=== PATIENT | male | born 1950 | race Caucasian/White ===

== ENCOUNTER → 2016-05-11 | Outpatient (CLI) | payer MEDICARE, MEDICAID ==
[2015-02-13 14:34] VITALS: BP 179/92
[~2016-05-11] MED LIST: FAMO20TA5 PO; LORA0.5T PO; MAGN400O4 PO; POLY17PO5 PO; SENN8.6T3 PO; SIMV20TA3 PO; TAMS0.4C97 PO; VENL37.5 PO
--- NOTE | 2016-05-12 15:15 | RAD ---
DATE: 05/11/2016 EXAM: DIGITAL DIAGNOSTIC BILATERAL HISTORY: Lump periareolar area right breast COMPARISON: None This study was interpreted with the benefit of Computerized Aided Detection (CAD). FINDINGS: The breast parenchyma shows scattered fibroglandular densities. Breast parenchyma level B. There is an area of low density, compatible with fat, in the periareolar position of the right breast. A dominant soft tissue mass or suspect group of calcifications is not seen. There are probable lymph nodes noted in the upper breasts bilaterally. Targeted ultrasound to the area of concern in the right breast was performed. There is an echogenic mass, compatible with fat, corresponding to the finding on mammography. IMPRESSION: Benign findings. There are findings about the right nipple suggesting excess fat or a lipoma. If there is a discrete, palpable, mass in either breast biopsy may be warranted despite unremarkable imaging BI-RADS CATEGORY: 2 BENIGN FINDING(S) RECOMMENDED FOLLOW-UP: CLIN FOLLOW UP IMAGING CLINICALLY INDICATED PQRS compliance statement: Patient information was entered into a reminder system with a target due date as clinically warranted for the next mammogram. Mammography is a sensitive method for finding small breast cancers, but it does not detect them all and is not a substitute for careful clinical examination. A negative mammogram does not negate a clinically suspicious finding and should not result in delay in biopsying a clinically suspicious abnormality. "Our facility is accredited by the [employer] Mammography Program." DICTATED and SIGNED BY: ALVAREZ GLYNN MD DATE: 05/11/16 1134 MTDJono
== END | disposition home or self-care (01) ==
LOC: MAMMO 12:50
PROVIDERS: ATTEND Internal Medicine
DX: R92.8 Other abnormal and inconclusive findings on diagnostic imaging of breast (principal); N63 Unspecified lump in breast
CPT/HCPCS: 76641; 77051; G0204

== ENCOUNTER 2018-08-04 08:16 | Inpatient (IN) | payer MEDICARE, OTHER ==
[~2018-08-04] VITALS: Ht 182.9 cm; Wt 120.2 kg
[~2018-08-04 08:16] MED LIST changes: -MAGN400O4 PO; +MAGN400O7 PO; +POLY17PO29 PO; -POLY17PO5 PO; +SENN-80 PO; -SENN8.6T3 PO
[2018-08-04] MEDS ORDERED: ACYCLOVIR SODIUM 500 MG in IV DEXTROSE 5% 100ML 100 ML IV STA (08:37)
--- NOTE | 2018-08-04 08:48 | PHYS DOC ---
Past Medical History Past Medical History: Anemia, Anxiety, Constipation, Depression, GERD, High Cholesterol, Hypertension, Renal Failure, Other Additional Past Medical Histor: MR, DYSPHAGIA Past Surgical History: Other Additional Past Surgical Histo: unknown Alcohol Use: None Drug Use: None Adult General Chief Complaint Chief Complaint: SHINGLES HPI HPI Patient is a 68 year old with history of mental retardation, hypertension, high cholesterol, kidney disease, anemia, mental retardation, who presents to the ED today from the senior care. Per senior care report to EMS patient has altered mental status bilateral lower extremity edema, and blisters on his bottom. EMS states some of the nurses at the senior care stated patient' s mental status is baseline as well as his lower extremity swelling is chronic. Patient arrives in the ED alert and oriented 3 and asking why he was sent to the hospital. He states he has no medical complaints. Review of Systems Review of Systems Constitutional: Denies fever or chills [] Eyes: Denies change in visual acuity, redness, or eye pain [] HENT: Denies nasal congestion or sore throat [] Respiratory: Denies cough or shortness of breath [] Cardiovascular: No additional information not addressed in HPI [] GI: Denies abdominal pain, nausea, vomiting, bloody stools or diarrhea [] : Denies dysuria or hematuria [] Musculoskeletal: Chronic edema. Denies back pain or joint pain [] Integument: Blisters on his bottom. Neurologic: Altered mental status. Denies headache, focal weakness or sensory changes [] All other systems were reviewed and found to be within normal limits, except as documented in this note. Current Medications Current Medications Current Medications Medications (Trade) Dose Ordered Sig/Brenden Start Time Stop Time Status Last Admin Dose Admin Acyclovir Sodium 500 mg/Dextrose 110 ml @ 110 mls/hr 1X STAT 08/04/18 08:37 08/04/18 09:36 DC 08/04/18 09:17 110 MLS/HR Piperacillin Sod/ Tazobactam Sod 4.5 gm/Sodium Chloride 100 ml @ 200 mls/hr 1X ONCE 08/04/18 12:00 08/04/18 12:29 DC 08/04/18 12:36 200 MLS/HR Sodium Chloride 1,000 ml @ 1,000 mls/hr 1X ONCE 08/04/18 11:00 08/04/18 11:59 DC Vancomycin HCl (Vanco Per Pharmacy) 1 each 1X ONCE 08/04/18 12:00 08/04/18 12:46 DC Allergies Allergies Allergies Coded Allergies Type Severity Reaction Last Updated Verified No Known Drug Allergies 05/10/13 No Physical Exam Physical Exam Constitutional: Well developed, well nourished, no acute distress, non-toxic appearance. [] HENT: Normocephalic, atraumatic, bilateral external ears normal, oropharynx moist, no oral exudates, nose normal. Tongue is thick and sticks out which is chronic. Airway is open. Eyes: PERRLA, EOMI, conjunctiva normal, no discharge.left upper eyelid is inverted chronically Neck: Normal range of motion, no tenderness, supple, no stridor. [] Cardiovascular:Heart rate regular rhythm, no murmur [] Lungs & Thorax: Bilateral breath sounds clear to auscultation [] Abdomen: Bowel sounds normal, soft, no tenderness, no masses, no pulsatile masses. [] Skin: Right buttocks with mild amount of blisters consistent with shingles. Back: No tenderness, no CVA tenderness. [] Extremities: No tenderness, no cyanosis, no clubbing, ROM intact, chronic not pitting +1 edema bilateral lower extremities. Drop foot on the left side. Neurologic: Alert and oriented X 3, normal motor function, normal sensory function, no focal deficits noted. Cranial nerves II through XII intact. Psychologic: Affect normal, judgement normal, mood normal. [] Current Patient Data Vital Signs Vital Signs Date Time Temp Pulse Resp B/P (MAP) Pulse Ox O2 Delivery O2 Flow Rate FiO2 08/04/18 12:00 88 16 141/78 (99) 95 Room Air 08/04/18 08:16 98.8 98.8 Lab Values Laboratory Tests Test 08/04/18 09:00 08/04/18 10:12 08/04/18 10:20 08/04/18 11:20 White Blood Count 8.2 x10^3/uL (4.0-11.0) Red Blood Count 4.62 x10^6/uL (4.30-5.70) Hemoglobin 12.3 g/dL (13.0-17.5) L Hematocrit 38.6 % (39.0-53.0) L Mean Corpuscular Volume 84 fL (79-100) Mean Corpuscular Hemoglobin 27 pg (25-35) Mean Corpuscular Hemoglobin Concent 32 g/dL (31-37) Red Cell Distribution Width 17.4 % (11.5-14.5) H Platelet Count 266 x10^3/uL (140-400) Neutrophils (%) (Auto) 73 % (31-73) Lymphocytes (%) (Auto) 19 % (24-48) L Monocytes (%) (Auto) 5 % (0-9) Eosinophils (%) (Auto) 2 % (0-3) Basophils (%) (Auto) 1 % (0-3) Neutrophils # (Auto) 6.0 x10^3uL (1.8-7.7) Lymphocytes # (Auto) 1.5 x10^3/uL (1.0-4.8) Monocytes # (Auto) 0.4 x10^3/uL (0.0-1.1) Eosinophils # (Auto) 0.2 x10^3/uL (0.0-0.7) Basophils # (Auto) 0.0 x10^3/uL (0.0-0.2) Prothrombin Time 13.0 SEC (11.7-14.0) Prothrombin Time INR 1.0 (0.8-1.1) Sodium Level 145 mmol/L (136-145) Potassium Level 4.1 mmol/L (3.5-5.1) Chloride Level 103 mmol/L (98-107) Carbon Dioxide Level 35 mmol/L (21-32) H Anion Gap 7 (6-14) Blood Urea Nitrogen 24 mg/dL (8-26) Creatinine 1.2 mg/dL (0.7-1.3) Estimated GFR (Cockcroft-Gault) 60.6 BUN/Creatinine Ratio 20 (6-20) Glucose Level 137 mg/dL (70-99) H Calcium Level 8.8 mg/dL (8.5-10.1) Magnesium Level 1.9 mg/dL (1.8-2.4) Total Bilirubin 0.3 mg/dL (0.2-1.0) Aspartate Amino Transferase (AST) 15 U/L (15-37) Alanine Aminotransferase (ALT) 24 U/L (16-63) Alkaline Phosphatase 73 U/L (46-116) Creatine Kinase 82 U/L (39-308) Creatine Kinase MB (Mass) 0.5 ng/mL (0.0-3.6) Creatine Kinase MB Relative Index 0.6 % (0-4) Troponin I Quantitative < 0.017 ng/mL (0.000-0.055) HO-Jny-E-Type Natriuretic Peptide 26 pg/mL (0-124) Total Protein 7.9 g/dL (6.4-8.2) Albumin 3.9 g/dL (3.4-5.0) Albumin/Globulin Ratio 1.0 (1.0-1.7) Thyroid Stimulating Hormone (TSH) 2.133 uIU/mL (0.358-3.74) Influenza Type A Antigen Negative (NEGATIVE) Influenza Type B Antigen Negative (NEGATIVE) Lactic Acid Level 2.1 mmol/L (0.4-2.0) H Urine Collection Type U cath Urine Color Yellow Urine Clarity Cloudy Urine pH 7.0 Urine Specific [place] 1.020 Urine Protein Negative mg/dL (NEG-TRACE) Urine Glucose (UA) Negative mg/dL (NEG) Urine Ketones (Stick) Trace mg/dL (NEG) Urine Blood Negative (NEG) Urine Nitrite Negative (NEG) Urine Bilirubin Negative (NEG) Urine Urobilinogen Dipstick 1.0 mg/dL (0.2 mg/dL) Urine Leukocyte Esterase Large (NEG) Urine RBC 3-5 /HPF (0-2) Urine WBC Tntc /HPF (0-4) Urine Squamous Epithelial Cells Mod /LPF Urine Bacteria Many /HPF (0-FEW) Urine Mucus Mod /LPF Laboratory Tests 08/04/18 09:00 Laboratory Tests 08/04/18 09:00 EKG EKG [] Radiology/Procedures Radiology/Procedures []PROCEDURE: PORTABLE CHEST 1V EXAM: Chest, single view. HISTORY: Altered mental status. Shingles. COMPARISON: 02/11/2015 FINDINGS: A frontal view of the chest is obtained. There is stable and right middle lobe and left infrahilar opacity likely due to atelectasis or pleural parenchymal scarring. There is no pleural effusion or pneumothorax. The heart is normal in size. There are severe degenerative changes involving the glenohumeral joints. IMPRESSION: Stable suspected right middle lobe and left infrahilar atelectasis or pleural parenchymal scarring. Electronically signed by: Coleen Celaya MD (08/04/2018 9:13 AM) [facility] DICTATED and SIGNED BY: COLEEN CELAYA MD DATE: 08/04/18912 PROCEDURE: CT HEAD WO CONTRAST CT HEAD INDICATION: Altered mental status COMPARISON: 12/30/2014 Exposure: One or more of the following individualized dose reduction techniques were utilized for this examination: 1. Automated exposure control 2. Adjustment of the mA and/or kV according to patient size 3. Use of iterative reconstruction technique TECHNIQUE: 5 mm contiguous axial images were obtained from the skull base to the vertex in both bone and soft tissue algorithm. FINDINGS: Mild bilateral periventricular white matter hypodensities likely chronic small vessel ischemic disease. No evidence of acute intracranial hemorrhage. No extra-axial fluid collections. No mass effect or midline shift. Ventricular size is appropriate. Basal cisterns are patent. No fractures identified.Rivero-white differentiation is preserved.Globes and orbits are within normal limits. Paranasal sinuses and mastoid air cells are clear. IMPRESSION: No acute intracranial findings. Electronically signed by: Dante Cid MD (08/04/2018 9:33 AM) [facility] DICTATED and SIGNED BY: DANTE CID MD DATE: 08/04/18932 Course & Med Decision Making Course & Med Decision Making Pertinent Labs and Imaging studies reviewed. (See chart for details) This is a 68-year-old male patient presenting to the ED today from the senior care to be evaluated for edema, altered mental status, from information from the senior care this appears to be a chronic issue. Patient was also noted to have blisters on the right buttocks consistent with shingles. CT of the head is negative for any acute findings, chest x-ray is negative. CBC with a normal WBC, CMP would not acute findings, troponin is normal. Lactic 2.1 , Urine analysis is noted for UTI. Patient was started on Zosyn and vancomycin. He was also given 2 L of IV fluids in the ED. He was also given acyclovir. His vitals are stable. Spoke with Dr. Krishnamurthy who accepted patient for admission Draglesa Disclaimer Dragon Disclaimer This electronic medical record was generated, in whole or in part, using a voice recognition dictation system. Departure Departure Impression: Primary Impression: UTI (urinary tract infection) Additional Impressions: Shingles Altered mental status Disposition: 09 ADMITTED INPATIENT Condition: STABLE Referrals: MICHAEL KRISHNAMURTHY MD (PCP) Problem Qualifiers Primary Impression: UTI (urinary tract infection) Urinary tract infection type: site unspecified Hematuria presence: without hematuria Qualified Codes: N39.0 - Urinary tract infection, site not specified Additional Impressions: Shingles Herpes zoster complications: without complications Qualified Codes: B02.9 - Zoster without complications Altered mental status Altered mental status type: unspecified Qualified Codes: R41.82 - Altered mental status, unspecified KARIE CRYSTAL ICD 9 CODER Aug 04, 2018 08:48
[2018-08-04 09:07] LABS: BASO % 1 % (0-3); EOS # 0.2 x10^3/uL (0.0-0.7); EOS % 2 % (0-3); HEMATOCRIT 38.6 % (39.0-53.0); HEMOGLOBIN 12.3 g/dL (13.0-17.5); LYMPH # 1.5 x10^3/uL (1.0-4.8); LYMPH % 19 % (24-48); MEAN CORPUSCULAR HEMOGLOBIN 27 pg (25-35); MEAN CORPUSCULAR HGB CONC 32 g/dL (31-37); MEAN CORPUSCULAR VOLUME 84 fL (79-100); MONO # 0.4 x10^3/uL (0.0-1.1); MONO % 5 % (0-9); NEUT % 73 % (31-73); PLATELET COUNT 266 x10^3/uL (140-400); RED BLOOD COUNT 4.62 x10^6/uL (4.30-5.70); RED CELL DISTRIBUTION WIDTH 17.4 % (11.5-14.5); WHITE BLOOD COUNT 8.2 x10^3/uL (4.0-11.0)
[2018-08-04 09:15] LABS: CALCIUM 8.8 mg/dL (8.5-10.1); CREATININE 1.2 mg/dL (0.7-1.3); GFR 60.6; POTASSIUM 4.1 mmol/L (3.5-5.1)
--- NOTE | 2018-08-04 09:15 | RAD ---
EXAM: Chest, single view. HISTORY: Altered mental status. Shingles. COMPARISON: 02/11/2015 FINDINGS: A frontal view of the chest is obtained. There is stable and right middle lobe and left infrahilar opacity likely due to atelectasis or pleural parenchymal scarring. There is no pleural effusion or pneumothorax. The heart is normal in size. There are severe degenerative changes involving the glenohumeral joints. IMPRESSION: Stable suspected right middle lobe and left infrahilar atelectasis or pleural parenchymal scarring. Electronically signed by: Coleen Cruz MD (08/04/2018 9:13 AM) [place] [id number]
[2018-08-04 09:21] LABS: ALBUMIN 3.9 g/dL (3.4-5.0); MAGNESIUM 1.9 mg/dL (1.8-2.4); TOTAL BILIRUBIN 0.3 mg/dL (0.2-1.0); TOTAL PROTEIN 7.9 g/dL (6.4-8.2)
--- NOTE | 2018-08-04 09:36 | RAD ---
CT HEAD INDICATION: Altered mental status COMPARISON: 12/30/2014 Exposure: One or more of the following individualized dose reduction techniques were utilized for this examination: 1. Automated exposure control 2. Adjustment of the mA and/or kV according to patient size 3. Use of iterative reconstruction technique TECHNIQUE: 5 mm contiguous axial images were obtained from the skull base to the vertex in both bone and soft tissue algorithm. FINDINGS: Mild bilateral periventricular white matter hypodensities likely chronic small vessel ischemic disease. No evidence of acute intracranial hemorrhage. No extra-axial fluid collections. No mass effect or midline shift. Ventricular size is appropriate. Basal cisterns are patent. No fractures identified.Rivero-white differentiation is preserved.Globes and orbits are within normal limits. Paranasal sinuses and mastoid air cells are clear. IMPRESSION: No acute intracranial findings. Electronically signed by: Dante Cid MD (08/04/2018 9:33 AM) [facility]
--- NOTE | 2018-08-04 10:39 | EKG ---
[facility] [address] [place] [address] Test Date: 2018-08-04 Test Time: 09:26:44 Pat Name: KASHIF VANN Department: Room: Gender: M Building Services Supervisor: : 1950 Requested By: KARIE CRYSTAL Order Number: [id number] Reading MD: Daniel Barragan MD Measurements Intervals [place] Rate: 80 P: -12 NM: 182 QRS: 43 QRSD: 102 T: 18 QT: 350 QTc: 406 Interpretive Statements SINUS RHYTHM NON-SPECIFIC ST/T CHANGES Electronically Signed On 08-07-2018 14:14:36 CDT by Daniel Barragan MD
[2018-08-04 10:48] LABS: INFLUENZA A PATIENT NEGATIVE (NEGATIVE); INFLUENZA B PATIENT NEGATIVE (NEGATIVE)
[2018-08-04] MEDS ORDERED: IV NORMAL SALINE 1000ML BAG 1,000 ML IV ONE ×3 (11:00→13:00)
[2018-08-04 11:32] LABS: BILIRUBIN,URINE NEGATIVE (NEG); CLARITY,URINE CLOUDY; COLOR,URINE YELLOW; NITRITE,URINE NEGATIVE (NEG); PROTEIN,URINE NEGATIVE (NEG-TRACE)
[2018-08-04 11:39] LABS: BACTERIA,URINE MANY /HPF (0-FEW); SQUAMOUS EPITHELIAL CELL,UR MOD /LPF; WBC,URINE TNTC /HPF (0-4)
[2018-08-04] MEDS ORDERED: VANCOMYCIN PER PHARMACY MC ONE (12:00)
[2018-08-04] MEDS ORDERED: PIPERACILLIN/TAZOBACTAM 4.5 GM in IV NORMAL SALINE 100ML 100 ML IV ONE (12:00)
[2018-08-04] MEDS ORDERED: VANCOMYCIN 2 GM in IV NORMAL SALINE 500ML BAG 500 ML IV ONE (13:00)
[2018-08-04] MEDS ORDERED: ONDANSETRON PF 4 MG/2 ML VIAL. IV PRN (13:00)
[2018-08-04] MEDS ORDERED: MORPHINE SULFATE 2 MG/ML VIAL. IV PRN (13:00)
[2018-08-04] MEDS ORDERED: ACETAMINOPHEN 325 MG TABLET. PO PRN (13:00)
[2018-08-04] MEDS: ACYCLOVIR SODIUM 500 MG in IV DEXTROSE 5% 100ML 100 ML IV SCH ×2 (14:00→21:49)
[2018-08-04 14:21] VITALS: BP 111/62
[2018-08-04] MEDS ORDERED: DOCU100C28 PO (17:04)
[2018-08-04] MEDS ORDERED: CRAN425C3 PO (17:04)
[2018-08-04] MEDS ORDERED: LINZESS145 MCG PO (17:04)
[2018-08-04] MEDS ORDERED: ACET325T9 PO (17:04)
[2018-08-04] MEDS ORDERED: DIVA500T4 PO (17:04)
[2018-08-04] MEDS ORDERED: ATOR10TA60 PO (17:04)
[2018-08-04] MEDS ORDERED: BUSP5TAB PO (17:04)
[2018-08-04] MEDS ORDERED: MIRT15TA3 PO (17:04)
[2018-08-04] MEDS ORDERED: CROM10DR2 EACHEYE (17:04)
[2018-08-04] MEDS ORDERED: VENL75CA6 PO (17:04)
[2018-08-04 19:00] VITALS: BP 132/73
[2018-08-04 23:00] VITALS: BP 131/65
[2018-08-05 03:00] VITALS: BP 132/69
[2018-08-05 04:57] LABS: BASO % 1 % (0-3); EOS # 0.4 x10^3/uL (0.0-0.7); EOS % 6 % (0-3); HEMATOCRIT 33.6 % (39.0-53.0); HEMOGLOBIN 10.8 g/dL (13.0-17.5); LYMPH # 1.7 x10^3/uL (1.0-4.8); LYMPH % 26 % (24-48); MEAN CORPUSCULAR HEMOGLOBIN 27 pg (25-35); MEAN CORPUSCULAR HGB CONC 32 g/dL (31-37); MEAN CORPUSCULAR VOLUME 84 fL (79-100); MONO # 0.5 x10^3/uL (0.0-1.1); MONO % 8 % (0-9); NEUT # 3.9 x10^3uL (1.8-7.7); NEUT % 60 % (31-73); PLATELET COUNT 215 x10^3/uL (140-400); RED CELL DISTRIBUTION WIDTH 17.9 % (11.5-14.5); WHITE BLOOD COUNT 6.6 x10^3/uL (4.0-11.0)
[2018-08-05 05:21] LABS: ALBUMIN/GLOBULIN RATIO 0.9 (1.0-1.7); GFR 74.8; POTASSIUM 3.8 mmol/L (3.5-5.1); TOTAL BILIRUBIN 0.4 mg/dL (0.2-1.0); TOTAL PROTEIN 6.5 g/dL (6.4-8.2)
[2018-08-05] MEDS: ACYCLOVIR SODIUM 500 MG in IV DEXTROSE 5% 100ML 100 ML IV SCH (06:01)
[2018-08-05 07:00] VITALS: BP 127/70
[2018-08-05] MEDS ORDERED: NON FORMULARY ITEM (Cranberry Extract (Cranberry) 425 MG) PO SCH (09:00)
[2018-08-05] MEDS ORDERED: CROMOLYN SODIUM EACHEYE SCH (09:00)
[2018-08-05] MEDS ORDERED: ACETAMINOPHEN 325 MG TABLET. PO SCH (09:00)
[2018-08-05 11:14] VITALS: BP 121/64
--- NOTE | 2018-08-05 11:18 | HP ---
ADMIT DATE: HISTORY OF PRESENT ILLNESS: The patient is a 68-year-old male patient, a resident at [facility], who presented to Emergency Room with altered mental status, has also blisters on his bottom. His lower extremities were extremely swollen. However, by the time he arrived to the Emergency Room, he was alert, oriented and offered no medical complaint. He was examined and extensively investigated and the nurse practitioner contacted, said that he has shingles and that his urinalysis was consistent with a UTI, so the patient was admitted to treat his shingles and also his urinary tract infection. PAST MEDICAL HISTORY: Significant for benign prostatic hypertrophy, urinary retention, recurrent UTIs, severe mental retardation, hypertension, anemia, chronic renal failure, anxiety, and gastroesophageal reflux disease. PAST SURGICAL HISTORY: Unremarkable. ALLERGIES: He has no known drug allergies. FAMILY HISTORY: Significant for the fact that his father of lymphoma. SOCIAL HISTORY: He is single, never . He does not smoke, drink alcohol or use recreational drugs. He is a resident at [facility]. REVIEW OF SYSTEMS: Unobtainable. MEDICATIONS: The patient is currently on following medications: He is on tamsulosin 0.4 mg at bedtime, atorvastatin calcium 10 mg at bedtime, Tylenol 650 mg every 4 hours, divalproex for Depakote 500 mg twice a day, mirtazapine 15 mg at bedtime, venlafaxine 75 mg once a day, buspirone 5 mg twice a day, cromolyn sodium 1 drop to both eyes 4 times a day, Colace 100 mg twice a day, famotidine 20 mg once a day, linaclotide for Linzess 145 mcg once a day, cranberry extract 425 mg twice a day. PHYSICAL EXAMINATION: GENERAL: On arrival to the Emergency Room, the patient apparently was awake, alert, responding appropriately. Slightly pale. No jaundice, cyanosis or thyromegaly. No jugular venous distension. Mild bilateral lower limb edema. VITAL SIGNS: His heart rate was 87, blood pressure 133/86, temperature was 98.8, respiratory rate was 16, and oxygen saturation was 98% on room air. HEAD, EYES, EARS, NOSE AND THROAT: Showed normocephalic, atraumatic. NECK: Supple. HEART: Normal first and second heart sounds. No gallop, rub or murmur. CHEST: Clear to auscultation. No crepitation or rhonchi. ABDOMEN: Distended, soft, nontender. No guarding or rigidity. No organomegaly. All hernial orifices intact. Bowel sounds normal. NEUROLOGIC: He is grossly intact, although he is mostly wheelchair bound. LABORATORY DATA: On arrival showed a white cell count of 8200, hemoglobin 12.3, hematocrit 38.6, MCV 84 and platelet count 266,000. Serum sodium was 145, potassium 4.1, chloride 103, bicarbonate 35, anion gap of 7, BUN 24, creatinine 1.2, estimated GFR was 60 mL per minute, his glucose 137, calcium was 8.8, magnesium was 1.9. Total bilirubin, AST, ALT, alkaline phosphatase were normal. His total protein was 7.9, albumin was 3.9. His prothrombin time 13, INR of 1. Urinalysis showed the urine was yellow, cloudy with a pH of 7, specific gravity of 1.020. The urine was negative for protein, glucose, there was trace of ketones, negative for blood, nitrite and bilirubin. However, there is large amount of leukocyte esterase with 3-5 rbc's, too numerous to count wbc's and many bacteria. His influenza A and B were negative. His CT scan of the head showed that there are mild bilateral periventricular white matter hypodensities, likely chronic small vessel ischemic disease, no evidence of acute intracranial hemorrhage, no extraaxial fluid collection, no mass effect or midline shift, ventricular size is appropriate. Basal cisterns are patent. No fracture identified. The leigh-white differentiation is preserved. Globes and orbits are within normal limits. Paranasal sinuses and mastoid air cells are clear. His chest x-ray showed stable suspected right middle lobe and left infrahilar atelectasis or pleural parenchymal scarring. ASSESSMENT AND PLAN: The patient was admitted with shingles. He was started on acyclovir as well as vancomycin and piperacillin. I have not really seen the patient myself and relied on the nurse practitioner in the Emergency Room description of the rash. MICHAEL BOJORQUEZ MD DR: CHRISTY/damien JOB#: [id number] / [id number]
[2018-08-05 15:00] VITALS: BP 115/63
[2018-08-05] MEDS: cefTRIAXone IV Push 1 GM VIAL. IVP SCH (16:31)
[2018-08-05] MEDS: DOCUSATE SODIUM 100 MG CAPSULE. PO SCH ×2 (16:31→21:07)
[2018-08-05] MEDS: VENLAFAXINE XR 37.5 MG CAP.ER.24H. PO SCH (16:31)
[2018-08-05] MEDS: DIVALPROEX EXTENDED RELEASE 500 MG TAB.ER.24H. PO SCH ×2 (16:32→21:07)
[2018-08-05] MEDS: busPIRone 5 MG TABLET. PO SCH ×2 (16:32→21:07)
[2018-08-05] MEDS: FAMOTIDINE 20 MG TABLET. PO SCH (16:32)
[2018-08-05] MEDS: SULFACETAMIDE 10% OPHTH SOLUTION 15ML BOTTLE. OU SCH ×3 (16:33→21:08)
[2018-08-05 19:00] VITALS: BP 131/70
[2018-08-05] MEDS: ERYTHROMYCIN 0.5% OPHTH OINTMENT 1GM TUBE. OU SCH (21:00)
[2018-08-05] MEDS: LACTOBACILLUS RHAMNOSUS GG 1 CAPSULE. PO SCH (21:07)
[2018-08-05] MEDS: MIRTAZAPINE 15 MG TABLET PO SCH (21:07)
[2018-08-05] MEDS: TAMSULOSIN 0.4 MG CAP.ER.24H. PO SCH (21:07)
[2018-08-05] MEDS: ATORVASTATIN CALCIUM 10 MG TABLET. PO SCH (21:07)
[2018-08-05 23:00] VITALS: BP 147/76
[2018-08-06] VITALS (7 sets, daily range): BP systolic 129–156; BP diastolic 66–123
--- NOTE | 2018-08-06 00:52 | PN ---
DATE: 08/05/2018 SUBJECTIVE: The patient is resting, slightly propped up, sleeping comfortably in no apparent distress. On questioning him, he denied any complaint. The nursing staff did not voice any concern. PHYSICAL EXAMINATION: GENERAL: When I examined him, he looked pale, but no jaundice, cyanosis or thyromegaly. No jugular venous distention. No lower limb edema. VITAL SIGNS: His heart rate was 72, blood pressure was 111/62, temperature was 98.1, respiratory rate was 20, and oxygen saturation was 94% on room air. HEAD, EYES, EARS, NOSE AND THROAT: Showed normocephalic, atraumatic. He has bilateral conjunctivitis. NECK: Supple. HEART: Showed normal first and second heart sounds. No gallop, rub or murmur. CHEST: Clear to auscultation. No crepitation or rhonchi. ABDOMEN: Distended, soft, nontender. NEUROLOGIC: He is sleepy, but arousable. All cranial nerves intact. He moves extremities without difficulty, although he is mostly bedbound, chair bound. SKIN: Examination of the skin shows what seems to be pressure ulcer at the sacral area that crosses the midline to the left side. I do not see any blisters anywhere else in any distribution and I am not really convinced that this is shingles. My plan is to discontinue acyclovir, discontinued other antibiotics, continue with only Rocephin. He has also bilateral conjunctivitis, probably start him also on some antibiotic ointment for that and eyedrops and await the result of the culture and sensitivity. MICHAEL BOJORQUEZ MD DR: CHRISTY/damien JOB#: [id number] / [id number]
[2018-08-06] MEDS ORDERED: NON FORMULARY ITEM (Linaclotide (Linzess) 145 MCG) PO SCH (07:00)
[2018-08-06 08:53] LABS: HEMATOCRIT 34.8 % (39.0-53.0); HEMOGLOBIN 11.1 g/dL (13.0-17.5); RED BLOOD COUNT 4.14 x10^6/uL (4.30-5.70); RED CELL DISTRIBUTION WIDTH 17.1 % (11.5-14.5); WHITE BLOOD COUNT 6.4 x10^3/uL (4.0-11.0)
[2018-08-06] MEDS: LACTOBACILLUS RHAMNOSUS GG 1 CAPSULE. PO SCH ×2 (08:59→20:43)
[2018-08-06] MEDS: FAMOTIDINE 20 MG TABLET. PO SCH (08:59)
[2018-08-06] MEDS: VENLAFAXINE XR 37.5 MG CAP.ER.24H. PO SCH (08:59)
[2018-08-06] MEDS: DOCUSATE SODIUM 100 MG CAPSULE. PO SCH ×2 (09:00→20:43)
[2018-08-06] MEDS: busPIRone 5 MG TABLET. PO SCH ×2 (09:00→20:43)
[2018-08-06] MEDS: DIVALPROEX EXTENDED RELEASE 500 MG TAB.ER.24H. PO SCH ×2 (09:00→20:43)
[2018-08-06] MEDS: SULFACETAMIDE 10% OPHTH SOLUTION 15ML BOTTLE. OU SCH ×4 (09:01→20:43)
[2018-08-06] MEDS: cefTRIAXone IV Push 1 GM VIAL. IVP SCH (09:01)
[2018-08-06 09:17] LABS: ALBUMIN 3.3 g/dL (3.4-5.0); ALBUMIN/GLOBULIN RATIO 0.9 (1.0-1.7); CALCIUM 8.6 mg/dL (8.5-10.1); CREATININE 1.1 mg/dL (0.7-1.3); POTASSIUM 3.9 mmol/L (3.5-5.1); TOTAL BILIRUBIN 0.3 mg/dL (0.2-1.0)
[2018-08-06] MEDS: ATORVASTATIN CALCIUM 10 MG TABLET. PO SCH (20:43)
[2018-08-06] MEDS: MIRTAZAPINE 15 MG TABLET PO SCH (20:43)
[2018-08-06] MEDS: ERYTHROMYCIN 0.5% OPHTH OINTMENT 1GM TUBE. OU SCH (20:43)
[2018-08-06] MEDS: TAMSULOSIN 0.4 MG CAP.ER.24H. PO SCH (20:43)
[2018-08-07] VITALS (7 sets, daily range): BP systolic 111–150; BP diastolic 47–86
--- NOTE | 2018-08-07 03:07 | PN ---
DATE: 08/06/2018 SUBJECTIVE: The patient is resting, slightly propped up in bed, in no apparent distress. Awake and alert. On questioning him, he denied any complaint. The nursing staff did not voice any concern and stated that he had an uneventful night. PHYSICAL EXAMINATION: GENERAL: When I examined him, he looked well and was clearly in no apparent respiratory distress. No pallor, jaundice, cyanosis or thyromegaly. No jugular venous distension. No limb edema. VITAL SIGNS: His heart rate was 74, blood pressure 129/73, temperature was 97.9, respiratory rate was 18 and oxygen saturation was 91%. The rest of clinical exam stable. ASSESSMENT AND PLAN: 1. Altered mental status, resolved. 2. The patient has probably a sacral unstageable pressure ulcer. I do not believe that he has shingles and discontinued his acyclovir. 3. Urinary tract infection for which he is on IV Rocephin. 4. Other medical problems include benign prostatic hypertrophy, hypertension, anemia, gastroesophageal reflux disease and severe mental retardation. MICHAEL BOJORQUEZ MD DR: CHRISTY/damien JOB#: [id number] / [id number]
[2018-08-07] MEDS: DOCUSATE SODIUM 100 MG CAPSULE. PO SCH ×2 (11:58→20:31)
[2018-08-07] MEDS: LACTOBACILLUS RHAMNOSUS GG 1 CAPSULE. PO SCH ×2 (11:58→20:32)
[2018-08-07] MEDS: SULFACETAMIDE 10% OPHTH SOLUTION 15ML BOTTLE. OU SCH ×4 (11:58→20:32)
[2018-08-07] MEDS: FAMOTIDINE 20 MG TABLET. PO SCH (11:58)
[2018-08-07] MEDS: busPIRone 5 MG TABLET. PO SCH ×2 (11:58→20:31)
[2018-08-07] MEDS: VENLAFAXINE XR 37.5 MG CAP.ER.24H. PO SCH (11:59)
[2018-08-07] MEDS: DIVALPROEX EXTENDED RELEASE 500 MG TAB.ER.24H. PO SCH ×2 (11:59→20:31)
[2018-08-07] MEDS: cefTRIAXone IV Push 1 GM VIAL. IVP SCH (12:01)
--- NOTE | 2018-08-07 16:53 | NUR ---
Wound care: Patient seen per wound care consult. See wound assessment. Patient has DTI to sacrum. Wound was pictured on admission. Wound cleansed and assessed. Recommendations for skin prep and Aquacel foam and tegaderm placed over dressing to keep clean from incontinence. Dressing applied. Patient incontinent of bowel and bladder at this time. Patient cleansed and Brief and naren changed. Patient repositioned in bed and turned to the left. A P-500 bed ordered. Dressing change instructions left in room. Call light in reach and bed lowered.
[2018-08-07] MEDS: ATORVASTATIN CALCIUM 10 MG TABLET. PO SCH (20:31)
[2018-08-07] MEDS: TAMSULOSIN 0.4 MG CAP.ER.24H. PO SCH (20:31)
[2018-08-07] MEDS: ERYTHROMYCIN 0.5% OPHTH OINTMENT 1GM TUBE. OU SCH (20:32)
[2018-08-07] MEDS: MIRTAZAPINE 15 MG TABLET PO SCH (20:32)
--- NOTE | 2018-08-08 01:20 | PN ---
DATE: 08/07/2018 SUBJECTIVE: The patient is resting, slightly propped up, sleeping comfortably, in no apparent distress. On questioning him, he denied any complaint. The nursing staff did not voice any concern that he had an uneventful night. His urine culture has grown more than 100,000 colony-forming units per mL of Escherichia coli, sensitivity still pending at the time of this dictation. PHYSICAL EXAMINATION: GENERAL: When I examined him this morning, he looked well. Slightly pale, but not jaundiced or cyanosed. No thyromegaly. No jugular venous distention. No lower limb edema. VITAL SIGNS: His heart rate was 66, blood pressure was 149/76, temperature was 98.4, respiratory rate was 18 and oxygen saturation was 97%. The rest of the clinical exam was stable. He has unstageable sacral decubitus ulcer. LABORATORY DATA: His lab works showed that his white cell count was 6400, hemoglobin 11, hematocrit 34, MCV was 84 and platelet count 222,000. His chemistry showed a serum sodium 148, potassium 3.9, chloride 107, bicarbonate 33, anion gap of 8, BUN 18, creatinine 1.1 and estimated GFR was 67 mL per minute. ASSESSMENT: 1. Altered mental status, resolved. He is back to his baseline. 2. Sacral unstageable pressure ulcer. 3. Urinary tract infection growing Escherichia coli. The result of the sensitivity is still pending. He will continue to be on IV Rocephin. 4. He has multiple other medical problems including: A. Benign prostatic hypertrophy. B. Hypertension. C. Anemia. D. Gastroesophageal reflux disease. E. Severe mental retardation. PLAN: Plan is to continue with IV antibiotic. I consulted the wound care team and I am hoping to discharge him back to [facility] tomorrow. MICHAEL BOJORQUEZ MD DR: CHRISTY/damien JOB#: [id number] / [id number]
[2018-08-08 03:00] VITALS: BP 112/54
[2018-08-08 07:00] VITALS: BP 120/60
[2018-08-08] MEDS: DOCUSATE SODIUM 100 MG CAPSULE. PO SCH (09:00)
[2018-08-08] MEDS ORDERED: AMOX500C PO (09:37)
--- NOTE | 2018-08-08 09:39 | SNU/HH DC ---
DISCHARGE ORDERS DISCHARGE INFORMATION: FINAL DIAGNOSIS Problems Medical Problems: (1) Altered mental status Status: Acute (2) Shingles Status: Acute (3) UTI (urinary tract infection) Status: Acute CONDITION ON DISCHARGE: Stable CODE STATUS: Code Status: Full JAIL: SNF STAY <30 DAYS: Yes POST DISCHARGE ORDERS: WEIGHT BEARING STATUS: As tolerated DIET AFTER DISCHARGE: Regular TREATMENT/EQUIPMENT ORDERS: ADAPTIVE EQUIPMENT NEEDED: Wheelchair Physical Therapy For: Evalulation/Treatment Occupational Therapy For: Evaluation/Treatment DISCHARGE MEDICATIONS: Home Meds Active Scripts Amoxicillin (AMOXICILLIN) 500 Mg Capsule, 500 MG PO TID for UTI for 5 Days, #15 CAP 0 Refills Prov:MICHAEL BOJORQUEZ MD 08/08/18 Reported Medications Acetaminophen (TYLENOL) 325 Mg Tablet, 2 TAB PO PRN Q4HRS for pain/temp, #30 TAB 08/04/18 Mirtazapine (MIRTAZAPINE) 15 Mg Tablet, 1 TAB PO QHS for impulive , #30 TAB 3 Refills 08/04/18 Linaclotide (LINZESS) 145 Mcg Capsule, 145 MCG PO DAILY07 for IRRITABLE BOWEL, CAP 08/04/18 Docusate Sodium (DOCUSATE SODIUM) 100 Mg Capsule, 1 CAP PO BID for constipation , #30 CAP 08/04/18 Divalproex Sodium (DEPAKOTE ER) 500 Mg Tab.er.24h, 1 TAB PO BID for Depression, #60 TAB 2 Refills 08/04/18 Cromolyn Sodium (CROMOLYN SODIUM) 10 Ml Drops, 1 DROP EACHEYE QID for allergies , #30 ML 3 Refills 08/04/18 Cranberry Extract (CRANBERRY) 425 Mg Capsule, 425 MG PO BID for supplement, CAP 08/04/18 Buspirone Hcl (BUSPIRONE HCL) 5 Mg Tablet, 1 TAB PO BID for Depression, #60 TAB 2 Refills 08/04/18 Atorvastatin Calcium (ATORVASTATIN CALCIUM) 10 Mg Tablet, 1 TAB PO HS for HLD, # 30 TAB 5 Refills 08/04/18 Venlafaxine Hcl (VENLAFAXINE HCL ER) 75 Mg Cap.er.24h, 1 CAP PO DAILY for Depression, #90 CAP 3 Refills 08/04/18 Tamsulosin Hcl (FLOMAX) 0.4 Mg Cap.er.24h, 0.4 MG PO 05/10/13 Famotidine (FAMOTIDINE) 20 Mg Tablet, 20 MG PO 05/10/13 Discontinued Reported Medications Simvastatin (SIMVASTATIN) 20 Mg Tablet, 20 MG PO 05/10/13 Sennosides (SENNA) 8.6 Mg Tablet, 8.6 MG PO 05/10/13 Polyethylene Glycol 3350 (MIRALAX) 17 Gm Powd.pack, 17 GM PO 05/10/13 Magnesium Hydroxide (MILK OF MAGNESIA) 400 Mg/5 Ml Oral.susp, 400 MG PO 05/10/13 Lorazepam (LORAZEPAM) 0.5 Mg Tablet, 0.5 MG PO 05/10/13 Venlafaxine Hcl (EFFEXOR XR) 37.5 Mg Cap.er.24h, 37.5 MG PO 05/10/13 MICHAEL BOJORQUEZ MD Aug 08, 2018 09:39
[2018-08-08] MEDS ORDERED: ERYT1OIN6 OP (09:47)
[2018-08-08] MEDS ORDERED: SULF15DR5 EACHEYE (09:47)
--- NOTE | 2018-08-08 10:03 | NUR ---
IP: Pt dx with shingles on buttock area. Pt to be in contact precautions until blisters are dry and crusted.
[2018-08-08] MEDS: cefTRIAXone IV Push 1 GM VIAL. IVP SCH (10:30)
[2018-08-08] MEDS: FAMOTIDINE 20 MG TABLET. PO SCH (10:31)
[2018-08-08] MEDS: LACTOBACILLUS RHAMNOSUS GG 1 CAPSULE. PO SCH (10:31)
[2018-08-08] MEDS: DIVALPROEX EXTENDED RELEASE 500 MG TAB.ER.24H. PO SCH (10:31)
[2018-08-08] MEDS: VENLAFAXINE XR 37.5 MG CAP.ER.24H. PO SCH (10:31)
[2018-08-08] MEDS: busPIRone 5 MG TABLET. PO SCH (10:31)
[2018-08-08] MEDS: SULFACETAMIDE 10% OPHTH SOLUTION 15ML BOTTLE. OU SCH (10:32)
[2018-08-08 11:00] VITALS: BP 116/59
--- NOTE | 2018-08-08 12:56 | NUR ---
MENDOZA following pt. Pt is LTC resident at [facility]. MENDOZA phoned and faxed orders/clinicals to [facility]. Pt will transport via facility arranged transport between [phone]. MENDOZA attempted to notify pt's brother but phone is disconnected. Packet on chart. Discussed with RN.
--- NOTE | 2018-08-08 13:14 | DS ---
DATE OF DISCHARGE: 08/08/2018 HOSPITAL COURSE: The patient is resting, slightly propped up in bed, in no apparent respiratory distress, sleepy, but arousable. On questioning him, he denied any complaint, stated he had a good night sleep. The nursing staff did not voice any concerns that he has an eventful night. PHYSICAL EXAMINATION: GENERAL: When I examined him, he looked slightly pale, but not jaundiced, cyanosis or thyromegaly. No jugular venous distention. No limb edema. VITAL SIGNS: His heart rate was 64, blood pressure was 120/60, temperature was 98.7, respiratory rate was 18 and oxygen saturation was 95% on 2 liters of oxygen. HEAD, EYES, EARS, NOSE AND THROAT: Showed normocephalic, atraumatic. NECK: Supple. HEART: Showed normal first and second heart sounds. No gallop, rub or murmur. CHEST: Clear to auscultation. No crepitation or rhonchi. ABDOMEN: Distended, soft, nontender. NEUROLOGIC: He was sleepy, but arousable. All cranial nerves intact. He moves extremities without difficulty, though he is mostly bed bound, wheelchair bound. His intake over the last 24 hours was 480, no output was recorded. LABORATORY DATA: His lab work showed a white cell count of 6400, hemoglobin 11, hematocrit 34, MCV 84 and platelet count 222,000. His chemistry showed serum sodium 148, potassium 3.9, chloride 107, bicarbonate 33, anion gap of 8, BUN 18, creatinine 1.1, estimated GFR was 67 mL, his glucose was 91 and calcium was 8.6. Total bilirubin, AST, ALT, alkaline phosphatase were normal. Total protein was 7, albumin was 3.3. His urine culture has grown more than 100,000 colony forming units per mL of Escherichia coli sensitive to cephalosporins. DISCHARGE MEDICATIONS: He was discharged back to [facility] to continue on cefdinir 300 mg twice a day. Actually, he was discharged on amoxicillin 500 mg 3 times a day, acetaminophen 650 mg every 4 hours, atorvastatin calcium 10 mg at bedtime, buspirone 5 mg twice a day, cranberry extract 425 mg twice a day, cromolyn sodium 1 drop to each eye 4 times a day, divalproex sodium for Depakote 500 mg twice a day, Colace 100 mg twice a day, famotidine 20 mg once a day, Linzess 145 mcg daily, mirtazapine 15 mg at bedtime, tamsulosin for Flomax 0.4 mg at bedtime and venlafaxine 75 mg daily. He was also discharged on sulfacetamide 2 drops 4 times a day and erythromycin quarter an inch twice a day at bedtime until clear. FINAL DISCHARGE DIAGNOSES: Altered mental status, resolved; urinary tract infection with growth of Escherichia coli, sensitive to amoxicillin; bilateral conjunctivitis, for which he is on sulfacetamide and erythromycin. MICHAEL BOJORQUEZ MD DR: CHRISTY/damien JOB#: [id number] / [id number]
--- NOTE | 2018-08-08 14:29 | NUR ---
Discharge Note: KASHIF VANN [address] [place] [address] [address] [facility]. Discharge instructions and discharge home medications reviewed with Andreea Knight and a copy given. All questions have been answered. The following instructions and handouts were given: Discontinued lines and drains: peripheral IV. Patient discharged to [facility] with Ambulance Personnel via St[facility]
== END 2018-08-08 14:34 | disposition home or self-care (01) | DRG 871 ==
LOC: ER 08:16 → 5 NORTH 12:28
PROVIDERS: ADMIT Internal Medicine; ATTEND Internal Medicine
DX: A41.9 Sepsis, unspecified organism (principal); G92 Toxic encephalopathy; N39.0 Urinary tract infection, site not specified; F72 Severe intellectual disabilities; N40.1 Benign prostatic hyperplasia with lower urinary tract symptoms; F32.9 Major depressive disorder, single episode, unspecified; F41.9 Anxiety disorder, unspecified; K21.9 Gastro-esophageal reflux disease without esophagitis; N18.9 Chronic kidney disease, unspecified; I12.9 Hypertensive chronic kidney disease with stage 1 through stage 4 chronic kidney disease, or unspecified chronic kidney disease; B02.9 Zoster without complications; E78.00 Pure hypercholesterolemia, unspecified; H10.9 Unspecified conjunctivitis; L89.150 Pressure ulcer of sacral region, unstageable; B96.20 Unspecified Escherichia coli [E. coli] as the cause of diseases classified elsewhere; D64.9 Anemia, unspecified; Z87.440 Personal history of urinary (tract) infections; Z80.7 Family history of other malignant neoplasms of lymphoid, hematopoietic and related tissues
CPT/HCPCS: 36415; 70450; 71045; 80053; 81001; 82553; 83605; 83735; 83880; 84443; 84484; 85025; 85027; 85610; 87040; 87086; 87186; 87804; 93005; 96365; 96366; 96367; 96368; J0133; J0696; J2270; J2543; J3370; J7030; J7040; 99285-25

== ENCOUNTER 2018-11-27 16:25 | Emergency (ER) | payer MEDICARE, MEDICAID ==
[~2018-11-27] VITALS: Ht 177.8 cm; Wt 120.2 kg
[~2018-11-27 16:25] MED LIST changes: +ACET325T9 PO; +AMOX500C PO; +ATOR10TA60 PO; +BUSP5TAB PO; +CRAN425C3 PO; +CROM10DR2 EACHEYE; +DIVA500T4 PO; +DOCU100C28 PO; +ERYT1OIN6 OP; +LINZESS145 MCG PO; +MIRT15TA3 PO; +SULF15DR5 EACHEYE; +VENL75CA6 PO
--- NOTE | 2018-11-27 16:55 | PHYS DOC ---
Past Medical History Past Medical History: Anemia, Anxiety, Constipation, Depression, GERD, High Cholesterol, Hypertension, Renal Failure, Other Additional Past Medical Histor: MR, DYSPHAGIA, URINARY RETENTION,BPH, Past Surgical History: Other Additional Past Surgical Histo: unknown Alcohol Use: None Drug Use: None Adult General Chief Complaint Chief Complaint: MECHANICAL FALL HPI HPI Patient is a 68-year-old male, with a history of mental retardation, not on any anticoagulants per custodial records, who presents to the emergency [facility] for evaluation. According to report, the patient was being wheeled in his wheelchair, and put his feet down, causing him to be thrown forward out of the wheelchair, striking his face on the ground. He had a little bit of blood in his mouth, which appears to be from a small abrasion on the inner aspect of his upper lip. The patient does not appear to have any other obvious external signs of trauma, but due to his underlying mental incapacity, his ability to provide a history is limited. Review of Systems Review of Systems Unable to obtain, secondary to mental retardation. Allergies Allergies Allergies Coded Allergies Type Severity Reaction Last Updated Verified No Known Drug Allergies 05/10/13 No Physical Exam Physical Exam PHYSICAL EXAM: CONSTITUTIONAL: Well developed, well nourished HEAD: normocephalic, atraumatic EENT: PERRL, EOMI. Conjunctivae normal color, sclerae non-icteric; moist mucous membranes. There is a superficial abrasion on the inner aspect of the upper lip, without any other evidence of trauma. There is no active bleeding. The nose does appear slightly irregular, but is nontender and there is no nasal bleeding. Remainder of the facial bones appear atraumatic and nontender. NECK: Supple, non-tender; no meningismus. LUNGS: Lungs CTA, breathing even and unlabored. Normal air movement. HEART: Regular rate and rhythm, no murmur CHEST: No deformity; non-tender ABDOMEN: The abdomen is soft, and non-tender, no masses or bruits. EXTREM: Normal ROM; no deformity, no calf tenderness. Normal pulses palpable in all extremities. There is no pedal edema. The extremities appear atraumatic. SKIN: No rash; no diaphoresis NEURO: Alert; moves all extremities, limited cognition. BACK:There is no bony tenderness to palpation of the thoracic or lumbar spine. Current Patient Data Vital Signs Vital Signs Date Time Temp Pulse Resp B/P (MAP) Pulse Ox O2 Delivery O2 Flow Rate FiO2 11/27/18 16:30 99.5 78 16 163/77 (105) 95 Room Air 99.5 EKG EKG [] Radiology/Procedures Radiology/Procedures [PROCEDURE: CT CERVICAL SPINE WO CONTRAST INDICATION: Trauma COMPARISON: July 2018 CT head and December 2014 TECHNIQUE: Axial CT images obtained through the head, face and cervical spine. One or more of the following individualized dose reduction techniques were utilized for this examination: 1. Automated exposure control; 2. Adjustment of the mA and/or kV according to patient size; 3. Use of iterative reconstruction technique. FINDINGS: Head: No midline shift. Calcific atherosclerosis. Scattered foci of low density of the white matter. Confluent region of low density within a portion of the right MCA territory. Portions the brain are not well seen secondary to patient motion. No definite hemorrhage is identified within the limits of this exam. Opacification of right greater than left external auditory canal with debris. Portion of right mastoid air cells are also opacified. Cervical spine: Degenerative changes throughout the cervical spine with osteophyte formation at vertebral body endplates as well as uncovertebral and facet hypertrophy with multilevel central canal and neural foraminal stenosis. Facial: There is evidence of odontogenic disease. Degenerative changes at the temporomandibular joints. Opacification of portion of the ethmoid air cells. No definite acute fracture. Postoperative changes to the globe bilaterally. IMPRESSION: 1. Some limitation secondary to motion but no definite acute hemorrhage. 2. Scattered foci of low density of the white matter. Nonspecific but can be seen with chronic small vessel ischemic disease. 3. Degenerative changes throughout the cervical spine without definite acute fracture or dislocation. 4. No definite acute facial fracture ] Course & Med Decision Making Course & Med Decision Making Pertinent Imaging studies reviewed. (See chart for details) [] Dragon Disclaimer Dragon Disclaimer This electronic medical record was generated, in whole or in part, using a voice recognition dictation system. Departure Departure Impression: Primary Impression: Accidental fall Additional Impression: Facial contusion Disposition: 01 HOME, SELF-CARE Condition: STABLE Referrals: MICHAEL BOJORQUEZ MD (PCP) Patient Instructions: Abrasions, Contusion, Wheelchair Use Problem Qualifiers ALEXANDER SANABRIA MD Nov 27, 2018 16:55
--- NOTE | 2018-11-27 17:44 | RAD ---
INDICATION: Trauma COMPARISON: July 2018 CT head and December 2014 TECHNIQUE: Axial CT images obtained through the head, face and cervical spine. One or more of the following individualized dose reduction techniques were utilized for this examination: 1. Automated exposure control; 2. Adjustment of the mA and/or kV according to patient size; 3. Use of iterative reconstruction technique. FINDINGS: Head: No midline shift. Calcific atherosclerosis. Scattered foci of low density of the white matter. Confluent region of low density within a portion of the right MCA territory. Portions the brain are not well seen secondary to patient motion. No definite hemorrhage is identified within the limits of this exam. Opacification of right greater than left external auditory canal with debris. Portion of right mastoid air cells are also opacified. Cervical spine: Degenerative changes throughout the cervical spine with osteophyte formation at vertebral body endplates as well as uncovertebral and facet hypertrophy with multilevel central canal and neural foraminal stenosis. Facial: There is evidence of odontogenic disease. Degenerative changes at the temporomandibular joints. Opacification of portion of the ethmoid air cells. No definite acute fracture. Postoperative changes to the globe bilaterally. IMPRESSION: 1. Some limitation secondary to motion but no definite acute hemorrhage. 2. Scattered foci of low density of the white matter. Nonspecific but can be seen with chronic small vessel ischemic disease. 3. Degenerative changes throughout the cervical spine without definite acute fracture or dislocation. 4. No definite acute facial fracture Electronically signed by: Roger Medina MD (11/27/2018 5:41 PM) [facility]
[2018-11-27 18:49] VITALS: BP 160/72
== END 2018-11-27 19:15 | disposition home or self-care (01) ==
LOC: ER 16:25
DX: S00.83XA Contusion of other part of head, initial encounter (principal); S19.9XXA Unspecified injury of neck, initial encounter; R51 Headache; K21.9 Gastro-esophageal reflux disease without esophagitis; E78.00 Pure hypercholesterolemia, unspecified; I12.9 Hypertensive chronic kidney disease with stage 1 through stage 4 chronic kidney disease, or unspecified chronic kidney disease; N18.9 Chronic kidney disease, unspecified; W05.0XXA Fall from non-moving wheelchair, initial encounter; Y93.89 Activity, other specified; Y92.89 Other specified places as the place of occurrence of the external cause; Y99.8 Other external cause status
CPT/HCPCS: 70450; 70486; 72125; 99284

== ENCOUNTER 2019-03-13 08:57 | Inpatient (IN) | payer MEDICARE, MEDICAID ==
[~2019-03-13] VITALS: Ht 182.9 cm; Wt 104.3 kg
[~2019-03-13 08:57] MED LIST changes: +SIMV20TA18 PO; -SIMV20TA3 PO
[2019-03-13] MEDS ORDERED: IV NORMAL SALINE 1000ML BAG 1,000 ML IV ONE (09:15)
[2019-03-13 09:25] LABS: BASO # 0.1 x10^3/uL (0.0-0.2); BASO % 1 % (0-3); EOS # 0.3 x10^3/uL (0.0-0.7); EOS % 4 % (0-3); HEMOGLOBIN 12.1 g/dL (13.0-17.5); LYMPH # 1.7 x10^3/uL (1.0-4.8); LYMPH % 21 % (24-48); MEAN CORPUSCULAR HEMOGLOBIN 27 pg (25-35); MEAN CORPUSCULAR HGB CONC 33 g/dL (31-37); MEAN CORPUSCULAR VOLUME 82 fL (79-100); MONO # 0.6 x10^3/uL (0.0-1.1); MONO % 7 % (0-9); NEUT # 5.5 x10^3/uL (1.8-7.7); NEUT % 68 % (31-73); PLATELET COUNT 325 x10^3/uL (140-400); RED BLOOD COUNT 4.51 x10^6/uL (4.30-5.70); RED CELL DISTRIBUTION WIDTH 17.5 % (11.5-14.5); WHITE BLOOD COUNT 8.2 x10^3/uL (4.0-11.0)
--- NOTE | 2019-03-13 09:25 | RAD ---
EXAM: CHEST ONE VIEW. HISTORY: Sepsis. COMPARISON: 08/04/2018. FINDINGS: A frontal view of the chest is obtained. An opacity in the left base is consistent with atelectasis or mild infiltrate. There is no pneumothorax or pleural effusion. The heart is not enlarged. There is moderate to severe bilateral glenohumeral osteoarthritis. IMPRESSION: 1. Left basilar atelectasis versus mild infiltrate. Electronically signed by: Omaira Awan MD (03/13/2019 9:22 AM) [facility]
[2019-03-13 09:34] LABS: PROTHROMBIN TIME PATIENT 13.3 SEC (11.7-14.0)
[2019-03-13 09:36] LABS: CREATININE 1.1 mg/dL (0.7-1.3); POTASSIUM 4.2 mmol/L (3.5-5.1)
[2019-03-13 09:44] LABS: ALBUMIN 3.6 g/dL (3.4-5.0); ALBUMIN/GLOBULIN RATIO 0.8 (1.0-1.7); TOTAL BILIRUBIN 0.3 mg/dL (0.2-1.0)
[2019-03-13 09:51] LABS: CREATINE KINASE 50 U/L (39-308)
--- NOTE | 2019-03-13 10:04 | EKG ---
[facility] [address] [place] [address] Test Date: 2019-03-13 Test Time: 09:21:36 Pat Name: KASHIF VANN Department: Room: Gender: Dba Developer: : 1950 Requested By: JAYLON ROBERSON Order Number: [id number] Reading MD: Measurements Intervals Erin Rate: 80 P: -3 DE: 176 QRS: 0 QRSD: 104 T: 27 QT: 356 QTc: 414 Interpretive Statements SINUS RHYTHM LEFTWARD AXIS R-S TRANSITION ZONE IN V LEADS DISPLACED TO THE LEFT NO SPECIFIC ECG ABNORMALITIES RI6.01 No previous ECG available for comparison
[2019-03-13 11:45] LABS: BILIRUBIN,URINE NEGATIVE (NEG); CLARITY,URINE CLEAR; COLOR,URINE YELLOW; NITRITE,URINE POSITIVE (NEG); PH,URINE 6.5; PROTEIN,URINE NEGATIVE (NEG-TRACE)
[2019-03-13 11:57] LABS: BACTERIA,URINE MANY /HPF (0-FEW); SQUAMOUS EPITHELIAL CELL,UR FEW /LPF
--- NOTE | 2019-03-13 12:11 | PHYS DOC ---
Past Medical History Past Medical History: Anemia, Anxiety, Constipation, Depression, GERD, High Cholesterol, Hypertension, Renal Failure, Other Additional Past Medical Histor: MR, DYSPHAGIA, URINARY RETENTION,BPH, (JAYLON ROBERSON APRN) Past Surgical History: Other Additional Past Surgical Histo: unknown (JAYLON ROBERSON APRN) Alcohol Use: None Drug Use: None (JAYLON ROBERSON APRN) Adult General Chief Complaint Chief Complaint: WOUND CHECK HPI HPI Patient is a 68 year old male who presents to the emergency department via EMS from [facility]. 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 They state that he had a fever of 100.8 axillary this morning at the snf. No medication was given for treatment of the fever. EMS states that the concern of the nurse is that the patient is septic. Patient denies any pain or complaints at this time, he has a history of MR and is a poor historian. (JAYLON ROBERSON APRN) Review of Systems Review of Systems Constitutional: reported fever. Integument: wounds to sacrum, erythema and excoriation to bilateral buttocks Neurologic: Denies headache Complete ROS is limited due to patient hx of MR and limited EMS report (JAYLON ROBERSON APRN) Current Medications Current Medications Current Medications Medications (Trade) Dose Ordered Sig/Brenden Start Time Stop Time Status Last Admin Dose Admin Ceftriaxone Sodium (Rocephin Im) 250 mg 1X ONCE 03/13/19 12:15 03/13/19 12:16 DC 03/13/19 12:14 250 MG Ceftriaxone Sodium (Rocephin) 0.75 gm 1X ONCE 03/13/19 12:45 03/13/19 12:46 DC Sodium Chloride 1,000 ml @ 1,000 mls/hr 1X ONCE 03/13/19 09:15 03/13/19 10:14 DC 03/13/19 10:07 1,000 MLS/HR (ALEXANDER MEAD MD) Allergies Allergies Allergies Coded Allergies Type Severity Reaction Last Updated Verified No Known Drug Allergies 05/10/13 No (ALEXANDER MEAD MD) Physical Exam Physical Exam Constitutional: Well developed, well nourished, no acute distress, non-toxic appearance. [] HENT: Normocephalic, atraumatic, bilateral external ears normal, nose normal. [] Eyes: PERRLA, EOMI, conjunctiva injected, watery discharge bilat Neck: Normal range of motion, no stridor. [] Cardiovascular:Heart rate regular rhythm Lungs & Thorax: Bilateral breath sounds clear to auscultation in upper lobes, diminished in posterior lower lobes. [] Abdomen: soft, no tenderness Skin: Warm, dry,; erythema and excoriation noted to gluteal cleft and bilateral buttocks with bandage draining purulent brown fluid over sacrum Back: No tenderness Extremities: No cyanosis, ROM intact Neurologic: Alert and oriented X 2, no focal deficits noted. [] Psychologic: Affect normal, judgement normal, mood normal. [] (JAYLON ROBERSON APRN) Current Patient Data Vital Signs Vital Signs Date Time Temp Pulse Resp B/P (MAP) Pulse Ox O2 Delivery O2 Flow Rate FiO2 03/13/19 11:30 70 18 151/76 (101) 96 Room Air 03/13/19 08:57 97.3 97.3 (ALEXANDER MEAD MD) Lab Values Laboratory Tests Test 03/13/19 09:15 03/13/19 11:26 White Blood Count 8.2 x10^3/uL (4.0-11.0) Red Blood Count 4.51 x10^6/uL (4.30-5.70) Hemoglobin 12.1 g/dL (13.0-17.5) L Hematocrit 37.0 % (39.0-53.0) L Mean Corpuscular Volume 82 fL (79-100) Mean Corpuscular Hemoglobin 27 pg (25-35) Mean Corpuscular Hemoglobin Concent 33 g/dL (31-37) Red Cell Distribution Width 17.5 % (11.5-14.5) H Platelet Count 325 x10^3/uL (140-400) Neutrophils (%) (Auto) 68 % (31-73) Lymphocytes (%) (Auto) 21 % (24-48) L Monocytes (%) (Auto) 7 % (0-9) Eosinophils (%) (Auto) 4 % (0-3) H Basophils (%) (Auto) 1 % (0-3) Neutrophils # (Auto) 5.5 x10^3/uL (1.8-7.7) Lymphocytes # (Auto) 1.7 x10^3/uL (1.0-4.8) Monocytes # (Auto) 0.6 x10^3/uL (0.0-1.1) Eosinophils # (Auto) 0.3 x10^3/uL (0.0-0.7) Basophils # (Auto) 0.1 x10^3/uL (0.0-0.2) Prothrombin Time 13.3 SEC (11.7-14.0) Prothrombin Time INR 1.0 (0.8-1.1) Activated Partial Thromboplast Time 30 SEC (24-38) Sodium Level 147 mmol/L (136-145) H Potassium Level 4.2 mmol/L (3.5-5.1) Chloride Level 106 mmol/L (98-107) Carbon Dioxide Level 31 mmol/L (21-32) Anion Gap 10 (6-14) Blood Urea Nitrogen 24 mg/dL (8-26) Creatinine 1.1 mg/dL (0.7-1.3) Estimated GFR (Cockcroft-Gault) 67.0 BUN/Creatinine Ratio 22 (6-20) H Glucose Level 106 mg/dL (70-99) H Lactic Acid Level 1.8 mmol/L (0.4-2.0) Calcium Level 9.0 mg/dL (8.5-10.1) Magnesium Level 2.0 mg/dL (1.8-2.4) Total Bilirubin 0.3 mg/dL (0.2-1.0) Aspartate Amino Transferase (AST) 12 U/L (15-37) L Alanine Aminotransferase (ALT) 16 U/L (16-63) Alkaline Phosphatase 56 U/L (46-116) Creatine Kinase 50 U/L (39-308) Creatine Kinase MB (Mass) < 0.5 ng/mL (0.0-3.6) Creatine Kinase MB Relative Index % (0-4) Troponin I Quantitative < 0.017 ng/mL (0.000-0.055) Total Protein 8.0 g/dL (6.4-8.2) Albumin 3.6 g/dL (3.4-5.0) Albumin/Globulin Ratio 0.8 (1.0-1.7) L Urine Collection Type U cath Urine Color Yellow Urine Clarity Clear Urine pH 6.5 Urine Specific Broad Top 1.020 Urine Protein Negative mg/dL (NEG-TRACE) Urine Glucose (UA) Negative mg/dL (NEG) Urine Ketones (Stick) Negative mg/dL (NEG) Urine Blood Negative (NEG) Urine Nitrite Positive (NEG) Urine Bilirubin Negative (NEG) Urine Urobilinogen Dipstick 1.0 mg/dL (0.2 mg/dL) Urine Leukocyte Esterase Large (NEG) Urine RBC 1-2 /HPF (0-2) Urine WBC 11-20 /HPF (0-4) Urine Squamous Epithelial Cells Few /LPF Urine Bacteria Many /HPF (0-FEW) Laboratory Tests 03/13/19 09:15 Laboratory Tests 03/13/19 09:15 (ALEXANDER MEAD MD) EKG EKG 0921- SR leftward axis, rate 80, no STEMI read by Dr. Mead[] (JAYLON ROBERSON HEALTHCARE RECEPTIONIST) Radiology/Procedures Radiology/Procedures PROCEDURE: SACRUM & COCCYX 3V Examination: 3 views of the sacrum and coccyx HISTORY: History of the coccyx region COMPARISON: None available Findings/ impression: The alignment of the sacrum, coccyx grossly appears unremarkable. Soft tissue air identified in the buttock region probably secondary to ulcer/wound. No evidence of cortical disruption evident on this radiograph. Severe degenerative changes bilateral hips.[] PROCEDURE: CHEST AP ONLY EXAM: CHEST ONE VIEW. HISTORY: Sepsis. COMPARISON: 08/04/2018. FINDINGS: A frontal view of the chest is obtained. An opacity in the left base is consistent with atelectasis or mild infiltrate. There is no pneumothorax or pleural effusion. The heart is not enlarged. There is moderate to severe bilateral glenohumeral osteoarthritis. IMPRESSION: 1. Left basilar atelectasis versus mild infiltrate. (JAYLON ROBERSON APRN) Course & Med Decision Making Course & Med Decision Making Pertinent Labs and Imaging studies reviewed. (See chart for details) DX: UTI, decubitus ulcer, pneumonia 1221- Spoke with Dr. Stokes who is the admitting physician, and care was assumed following discussion of patient. Patient's vital signs stable. Patient remains afebrile, appears nontoxic, respirations even and unlabored. Patient will be admitted to the med/tele floor. Patient's case and plan of care also discussed with Dr. Mead [] (JAYLON ROBERSON APRN) Course & Med Decision Making ER PHYSICIAN ATTENDING NOTE: I have personally seen and examined the patient, and agree with the history, physical exam, and plan, as documented by mid-level provider. (ALEXANDER MEAD MD) Dragon Disclaimer Dragon Disclaimer This electronic medical record was generated, in whole or in part, using a voice recognition dictation system. (JAYLON ROBERSON APRN) Departure Departure Impression: Primary Impression: UTI (urinary tract infection) Additional Impressions: Pneumonia Decubitus ulcer of coccyx Disposition: ADMITTED INPATIENT Admitting Physician: SINDY Drew) (JAYLON ROBERSON APRN) Condition: STABLE Referrals: MITALI MILLIGAN MD (PCP) Problem Qualifiers Primary Impression: UTI (urinary tract infection) Urinary tract infection type: site unspecified Hematuria presence: with hematuria Qualified Codes: N39.0 - Urinary tract infection, site not specified; R31.9 - Hematuria, unspecified Additional Impressions: Pneumonia Pneumonia type: due to unspecified organism Laterality: left Lung location: lower lobe of lung Qualified Codes: J18.1 - Lobar pneumonia, unspecified organism Decubitus ulcer of coccyx Pressure injury stage: unspecified pressure injury stage Qualified Codes: L89.159 - Pressure ulcer of sacral region, unspecified stage JAYLON ROBERSON APRN Mar 13, 2019 12:11 ALEXANDER MEAD MD Mar 13, 2019 13:11
[2019-03-13] MEDS ORDERED: cefTRIAXone IM 250 MG VIAL IM ONE (12:15)
--- NOTE | 2019-03-13 12:40 | RAD ---
Examination: 3 views of the sacrum and coccyx HISTORY: History of the coccyx region COMPARISON: None available Findings/ impression: The alignment of the sacrum, coccyx grossly appears unremarkable. Soft tissue air identified in the buttock region probably secondary to ulcer/wound. No evidence of cortical disruption evident on this radiograph. Severe degenerative changes bilateral hips. Electronically signed by: Dante Cid MD (03/13/2019 12:38 PM) [id number]
[2019-03-13] MEDS ORDERED: cefTRIAXone IV Push 1 GM VIAL. IVP ONE (12:45)
--- NOTE | 2019-03-13 14:13 | HP ---
ADMIT DATE: 03/13/2019 CHIEF COMPLAINT: Buttock wound. HISTORY OF PRESENT ILLNESS: The patient is a pleasant 68-year-old male who is cognitively challenged. Basically, he has a sacral wound and a buttock wound. He meets sepsis criteria. I discussed the case with ER physician. We are going to admit the patient and consult Infectious Disease and Wound Care. PAST MEDICAL HISTORY: Cognitive impairment, anxiety, constipation, depression, GERD, hyperlipidemia, hypertension, renal failure, anemia, dysphagia, urinary retention. ALLERGIES: None. FAMILY HISTORY: Diabetes. SOCIAL HISTORY: I think he lives in a facility. He does not drink, smoke or take drugs. MEDICATIONS: Reviewed, please refer to the [facility]AD. REVIEW OF SYSTEMS: Unable to obtain. The patient is too cognitively challenged. PHYSICAL EXAMINATION: VITALS: Within normal limits and are stable. GENERAL: No apparent distress. Alert and oriented. HEENT: Head is normocephalic, atraumatic, pupils were equally round and reactive to light and accommodation. He has bilateral subconjunctival discharge with conjunctivitis. NECK: Supple, no JVD, no thyromegaly was noted. LUNGS: Clear to auscultation in all lung catherine without rhonchi or wheezing. HEART: RRR, S1, S2 present. Peripheral pulses intact, no obvious murmurs were noted. ABDOMEN: Soft, nontender. Positive bowel sounds no organomegaly, normal bowel sounds. EXTREMITIES: Without any cyanosis, clubbing, or edema. Pedal pulses intact, Homans sign is negative. NEUROLOGIC: He is very weak and cognitively impaired. PSYCHIATRIC: Normal affect, normal mood. Stable. SKIN: He has buttock and sacral decubitus, please see the pictures. VASCULAR: Good capillary refill, neurovascular bundle appears to be intact. ASSESSMENT AND PLAN: Sepsis and buttock wound and coccygeal wounds and conjunctivitis. The patient has been admitted. I called the pharmacy. We are going to put him on Cipro eye drops. Consult Infectious Disease, IV antibiotics. Consult the Wound Care Team. Home meds. DVT prophylaxis. Full code. PROGNOSIS: Guarded. DAVID BABB DO DR: KRISTYN/damien JOB#: [id number] / [id number]
[2019-03-13 15:00] VITALS: BP 127/77
[2019-03-13] MEDS: CIPROFLOXACIN 0.3% OPHTH SOLUTION 5ML BOTTLE. OU SCH ×2 (17:00→21:46)
[2019-03-13 19:54] VITALS: BP 131/73
[2019-03-13 23:30] VITALS: BP 134/76
[2019-03-14 03:51] VITALS: BP 130/74
[2019-03-14 07:59] VITALS: BP 126/66
[2019-03-14] MEDS: CIPROFLOXACIN 0.3% OPHTH SOLUTION 5ML BOTTLE. OU SCH ×3 (08:33→17:31)
--- NOTE | 2019-03-14 09:12 | NUR ---
Wound Care Pt seen for wound care consultation re: pressure ulcers to buttocks and coccyx, Dr. Polanco also at bedside to assess. Dressing and packing removed from R buttock deep ulcer, foul odor, greyish green wound base. Unable to probe to bone or visualize any deep structures, undermining noted from 12-12. Pt may benefit from OR debridement, but will start with Vac Veraflo to help clean wound base and granulate tissue, per Dr. Polanco order. Coccyx area has a superficial area of breakdown that could be a combination of shear and pressure, stage II. Veraflo applied to R buttock wound, using 1 piece of waffle and 1 piece of foam. Veraflo settings as follows: 16 mL of NS instilled every 3 hours for 5 minute dwell time, strong seal achieved, pt tolerated well. Provided oral and eye care, as pt has thick, green eye discharge d/t eyelid flaccidity. Repositioned pt onto L side with wedge and pillows, heels floated. Will continue to follow for wound care.
[2019-03-14] MEDS ORDERED: ACETAMINOPHEN 325 MG TABLET. PO PRN (10:15)
--- NOTE | 2019-03-14 10:27 | PDOC ---
Infectious Disease Note Vital Sign Vital Signs Vital Signs Date Time Temp Pulse Resp B/P (MAP) Pulse Ox O2 Delivery O2 Flow Rate FiO2 03/14/19 07:59 97.9 64 20 126/66 (86) 99 Room Air 97.9 Labs Lab Laboratory Tests Test 03/13/19 11:26 Urine Collection Type U cath Urine Color Yellow Urine Clarity Clear Urine pH 6.5 Urine Specific [place] 1.020 Urine Protein Negative mg/dL (NEG-TRACE) Urine Glucose (UA) Negative mg/dL (NEG) Urine Ketones (Stick) Negative mg/dL (NEG) Urine Blood Negative (NEG) Urine Nitrite Positive (NEG) Urine Bilirubin Negative (NEG) Urine Urobilinogen Dipstick 1.0 mg/dL (0.2 mg/dL) Urine Leukocyte Esterase Large (NEG) Urine RBC 1-2 /HPF (0-2) Urine WBC 11-20 /HPF (0-4) Urine Squamous Epithelial Cells Few /LPF Urine Bacteria Many /HPF (0-FEW) Micro Microbiology 03/13/19 Blood Culture - Preliminary, Resulted NO GROWTH AFTER 1 DAY Objective Assessment pt seen, consult dictated Plan Plan of Care / BRAYAN BERRIOS MD Mar 14, 2019 10:27
--- NOTE | 2019-03-14 10:28 | PDOC ---
PROGRESS NOTES Chief Complaint Chief Complaint Sepsis and buttock wound UTI coccygeal wounds and conjunctivitis. T weakness debility, dysphagia, chronic Vitals Vitals Vital Signs Date Time Temp Pulse Resp B/P (MAP) Pulse Ox O2 Delivery O2 Flow Rate FiO2 03/14/19 07:59 97.9 64 20 126/66 (86) 99 Room Air 97.9 Physical Exam General: Alert, Cooperative, mild distress Heart: Normal S1 Lungs: Clear Extremities: No cyanosis Skin: No breakdown Labs LABS Laboratory Tests Test 03/13/19 11:26 Urine Collection Type U cath Urine Color Yellow Urine Clarity Clear Urine pH 6.5 Urine Specific [place] 1.020 Urine Protein Negative mg/dL (NEG-TRACE) Urine Glucose (UA) Negative mg/dL (NEG) Urine Ketones (Stick) Negative mg/dL (NEG) Urine Blood Negative (NEG) Urine Nitrite Positive (NEG) Urine Bilirubin Negative (NEG) Urine Urobilinogen Dipstick 1.0 mg/dL (0.2 mg/dL) Urine Leukocyte Esterase Large (NEG) Urine RBC 1-2 /HPF (0-2) Urine WBC 11-20 /HPF (0-4) Urine Squamous Epithelial Cells Few /LPF Urine Bacteria Many /HPF (0-FEW) Review of Systems Review of Systems no nv.d wants to eat Assessment and Plan Assessmemt and Plan Problems Medical Problems: (1) Decubitus ulcer of coccyx Status: Acute (2) Pneumonia Status: Acute (3) UTI (urinary tract infection) Status: Acute Comment Review of Relevant I have reviewed the following items dipesh (where applicable) has been applied. Labs Laboratory Tests Test 03/13/19 09:15 03/13/19 11:26 White Blood Count 8.2 x10^3/uL (4.0-11.0) Red Blood Count 4.51 x10^6/uL (4.30-5.70) Hemoglobin 12.1 g/dL (13.0-17.5) Hematocrit 37.0 % (39.0-53.0) Mean Corpuscular Volume 82 fL (79-100) Mean Corpuscular Hemoglobin 27 pg (25-35) Mean Corpuscular Hemoglobin Concent 33 g/dL (31-37) Red Cell Distribution Width 17.5 % (11.5-14.5) Platelet Count 325 x10^3/uL (140-400) Neutrophils (%) (Auto) 68 % (31-73) Lymphocytes (%) (Auto) 21 % (24-48) Monocytes (%) (Auto) 7 % (0-9) Eosinophils (%) (Auto) 4 % (0-3) Basophils (%) (Auto) 1 % (0-3) Neutrophils # (Auto) 5.5 x10^3/uL (1.8-7.7) Lymphocytes # (Auto) 1.7 x10^3/uL (1.0-4.8) Monocytes # (Auto) 0.6 x10^3/uL (0.0-1.1) Eosinophils # (Auto) 0.3 x10^3/uL (0.0-0.7) Basophils # (Auto) 0.1 x10^3/uL (0.0-0.2) Prothrombin Time 13.3 SEC (11.7-14.0) Prothromb Time International Ratio 1.0 (0.8-1.1) Activated Partial Thromboplast Time 30 SEC (24-38) Sodium Level 147 mmol/L (136-145) Potassium Level 4.2 mmol/L (3.5-5.1) Chloride Level 106 mmol/L (98-107) Carbon Dioxide Level 31 mmol/L (21-32) Anion Gap 10 (6-14) Blood Urea Nitrogen 24 mg/dL (8-26) Creatinine 1.1 mg/dL (0.7-1.3) Estimated GFR (Cockcroft-Gault) 67.0 BUN/Creatinine Ratio 22 (6-20) Glucose Level 106 mg/dL (70-99) Lactic Acid Level 1.8 mmol/L (0.4-2.0) Calcium Level 9.0 mg/dL (8.5-10.1) Magnesium Level 2.0 mg/dL (1.8-2.4) Total Bilirubin 0.3 mg/dL (0.2-1.0) Aspartate Amino Transf (AST/SGOT) 12 U/L (15-37) Alanine Aminotransferase (ALT/SGPT) 16 U/L (16-63) Alkaline Phosphatase 56 U/L (46-116) Creatine Kinase 50 U/L (39-308) Creatine Kinase MB (Mass) < 0.5 ng/mL (0.0-3.6) Creatine Kinase MB Relative Index % (0-4) Troponin I Quantitative < 0.017 ng/mL (0.000-0.055) Total Protein 8.0 g/dL (6.4-8.2) Albumin 3.6 g/dL (3.4-5.0) Albumin/Globulin Ratio 0.8 (1.0-1.7) Urine Collection Type U cath Urine Color Yellow Urine Clarity Clear Urine pH 6.5 Urine Specific [place] 1.020 Urine Protein Negative mg/dL (NEG-TRACE) Urine Glucose (UA) Negative mg/dL (NEG) Urine Ketones (Stick) Negative mg/dL (NEG) Urine Blood Negative (NEG) Urine Nitrite Positive (NEG) Urine Bilirubin Negative (NEG) Urine Urobilinogen Dipstick 1.0 mg/dL (0.2 mg/dL) Urine Leukocyte Esterase Large (NEG) Urine RBC 1-2 /HPF (0-2) Urine WBC 11-20 /HPF (0-4) Urine Squamous Epithelial Cells Few /LPF Urine Bacteria Many /HPF (0-FEW) Laboratory Tests Test 03/13/19 11:26 Urine Collection Type U cath Urine Color Yellow Urine Clarity Clear Urine pH 6.5 Urine Specific [place] 1.020 Urine Protein Negative mg/dL (NEG-TRACE) Urine Glucose (UA) Negative mg/dL (NEG) Urine Ketones (Stick) Negative mg/dL (NEG) Urine Blood Negative (NEG) Urine Nitrite Positive (NEG) Urine Bilirubin Negative (NEG) Urine Urobilinogen Dipstick 1.0 mg/dL (0.2 mg/dL) Urine Leukocyte Esterase Large (NEG) Urine RBC 1-2 /HPF (0-2) Urine WBC 11-20 /HPF (0-4) Urine Squamous Epithelial Cells Few /LPF Urine Bacteria Many /HPF (0-FEW) Microbiology 03/13/19 Blood Culture - Preliminary, Resulted NO GROWTH AFTER 1 DAY Medications Current Medications Sodium Chloride 1,000 ml @ 1,000 mls/hr 1X ONCE IV Last administered on 03/13/19at 10:07; Start 03/13/19 at 09:15; Stop 03/13/19 at 10:14; Status DC Ceftriaxone Sodium (Rocephin Im) 250 mg 1X ONCE IM Last administered on 03/13/19at 12:14; Start 03/13/19 at 12:15; Stop 03/13/19 at 12:16; Status DC Ceftriaxone Sodium (Rocephin) 0.75 gm 1X ONCE IVP Last administered on 03/13/19at 13:18; Start 03/13/19 at 12:45; Stop 03/13/19 at 12:46; Status DC Ciprofloxacin (Ciloxan Ophth) 1 drop QID OU Last administered on 03/14/19at 08:33; Start 03/13/19 at 17:00 Acetaminophen (Tylenol) 650 mg PRN Q4HRS PRN PO MILD PAIN / TEMP; Start 03/14/19 at 10:15 Atorvastatin Calcium (Lipitor) 10 mg HS PO ; Start 03/14/19 at 21:00 Buspirone HCl (Buspar) 5 mg BID PO ; Start 03/14/19 at 10:00 Divalproex Sodium (Depakote Er) 500 mg BID PO ; Start 03/14/19 at 11:00 Docusate Sodium (Colace) 100 mg BID PO ; Start 03/14/19 at 11:00 Famotidine (Pepcid) 20 mg DAILY PO ; Start 03/14/19 at 11:00 Mirtazapine (Remeron) 15 mg QHS PO ; Start 03/14/19 at 21:00 Sulfacetamide Sodium (Sulf-10) 1 drop QID OU ; Start 03/14/19 at 13:00 Tamsulosin HCl (Flomax) 0.4 mg DAILY PO ; Start 03/14/19 at 11:00 Non-Formulary Medication (Cromolyn Sodium ) 1 drop QID EACHEYE ; Start 03/14/19 at 13:00; Status UNV Lubiprostone (Amitiza) 24 mcg BIDWMEALS PO ; Start 03/14/19 at 17:00 Venlafaxine HCl (Effexor Xr) 75 mg DAILY PO ; Start 03/14/19 at 11:00 Active Scripts Active Erythromycin (Erythromycin Base) 1 Gm Oint...g. 0.25 Gm OP QHS 5 Days Sulfacetamide Sodium 15 Ml Drops 1 Drop EACHEYE QID 7 Days Amoxicillin 500 Mg Capsule 500 Mg PO TID 5 Days Reported Tylenol (Acetaminophen) 325 Mg Tablet 2 Tab PO PRN Q4HRS Mirtazapine 15 Mg Tablet 1 Tab PO QHS Linzess (Linaclotide) 145 Mcg Capsule 145 Mcg PO DAILY07 Docusate Sodium 100 Mg Capsule 1 Cap PO BID Depakote Er (Divalproex Sodium) 500 Mg Tab.er.24h 1 Tab PO BID Cromolyn Sodium 10 Ml Drops 1 Drop EACHEYE QID Cranberry (Cranberry Extract) 425 Mg Capsule 425 Mg PO BID Buspirone Hcl 5 Mg Tablet 1 Tab PO BID Atorvastatin Calcium 10 Mg Tablet 1 Tab PO HS Venlafaxine Hcl Er (Venlafaxine Hcl) 75 Mg Cap.er.24h 1 Cap PO DAILY Flomax (Tamsulosin Hcl) 0.4 Mg Cap.er.24h 0.4 Mg PO Famotidine 20 Mg Tablet 20 Mg PO Vitals/I & O Vital Sign - Last 24 Hours 03/13/19 03/13/19 03/13/19 03/13/19 10:30 11:00 11:30 11:55 Pulse 80 70 70 68 Resp 18 18 18 18 B/P (MAP) 146/86 (106) 144/71 (95) 151/76 (101) 138/68 (91) Pulse Ox 97 96 96 95 O2 Delivery Room Air Room Air Room Air Room Air 03/13/19 03/13/19 03/13/19 03/13/19 12:25 12:55 13:25 13:55 Pulse 68 72 70 68 Resp 18 18 18 18 B/P (MAP) 137/75 (95) 143/81 (101) 138/76 (96) 132/75 (94) Pulse Ox 98 99 97 97 O2 Delivery Room Air Room Air Room Air Room Air 03/13/19 03/13/19 03/13/19 03/13/19 15:00 19:45 19:54 23:30 Temp 97.3 98.0 98.2 97.3 98.0 98.2 Pulse 71 63 60 Resp 18 18 18 B/P (MAP) 127/77 (94) 131/73 (92) 134/76 (95) Pulse Ox 99 96 94 O2 Delivery Room Air Room Air Room Air Room Air 03/14/19 03/14/19 03:51 07:59 Temp 98.2 97.9 98.2 97.9 Pulse 64 64 Resp 18 20 B/P (MAP) 130/74 (92) 126/66 (86) Pulse Ox 99 99 O2 Delivery Room Air Room Air Intake and Output 03/13/19 03/13/19 03/14/19 15:00 23:00 07:00 Intake Total 1000 ml 100 ml 0 ml Balance 1000 ml 100 ml 0 ml EITAN WHITE MD Mar 14, 2019 10:28
[2019-03-14] MEDS ORDERED: DIVALPROEX EXTENDED RELEASE 500 MG TAB.ER.24H. PO SCH (11:00)
--- NOTE | 2019-03-14 11:10 | NUR ---
Wound Care Received call from floor RN stating Dr. Andrews removed wound vac to assess R buttock wound bed. Spoke with Dr. Andrews re: wound and Dr. Polanco recommendations. Dr. Andrews stated pt did not need debridement at this time, and wound odor was from our wound vac, although vac was just placed an hour ago. Will replace vac this afternoon after clinic, RN placed wet to dry in the meantime.
[2019-03-14 11:26] VITALS: BP 118/65
--- NOTE | 2019-03-14 11:32 | NUR ---
SW following pt for dc planning. Chart reviewed and SW confirmed with facility, pt is LTC resident at [facility], phone: [phone], fax: [phone]. SW will continue to follow.
[2019-03-14] MEDS: FAMOTIDINE 20 MG TABLET. PO SCH (12:09)
[2019-03-14] MEDS: DOCUSATE SODIUM 100 MG CAPSULE. PO SCH ×2 (12:09→21:00)
[2019-03-14] MEDS: VENLAFAXINE XR 37.5 MG CAP.ER.24H. PO SCH (12:09)
[2019-03-14] MEDS: TAMSULOSIN 0.4 MG CAP.ER.24H. PO SCH (12:09)
[2019-03-14] MEDS: SULFACETAMIDE 10% OPHTH SOLUTION 15ML BOTTLE. OU SCH ×2 (12:09→17:31)
[2019-03-14] MEDS: busPIRone 5 MG TABLET. PO SCH (12:09)
[2019-03-14] MEDS: cefTRIAXone IV Push 2 GM VIAL. IVP SCH (12:12)
[2019-03-14] MEDS ORDERED: CROMOLYN SODIUM EACHEYE SCH (13:00)
--- NOTE | 2019-03-14 13:05 | CONS ---
DATE OF CONSULTATION: 03/14/2019 REQUESTING PHYSICIAN: Dr. Stokes. REASON FOR CONSULTATION: Gluteal wound and possible early sepsis. HISTORY OF PRESENT ILLNESS: This is a 68-year-old gentleman who is a [place] [facility] resident with [facility], who was brought in because apparently he had a fever in the morning and he does have a wound and this patient has been on a wound VAC for 2 months. He is saying yes to the vomiting. Denies any chest pain, shortness of breath, abdominal pain. The patient has not had any fever here and the white count is normal. His BUN and creatinine have been normal. Lactic acid was normal. Urinalysis showed 11-20 wbc's. The patient was given a dose of Rocephin and consult has been requested. The patient denies any other complaints. PAST MEDICAL HISTORY: Positive for urinary retention with benign prostatic hypertrophy, dysphagia, hypertension, hyperlipidemia, gastroesophageal reflux disease, obesity, anxiety, anemia, cognitive deficit. SOCIAL HISTORY: Negative for smoking, alcohol or illicit drug use. The patient is a [place] [facility] resident with [facility]. ALLERGIES: No known drug allergies. CURRENT MEDICATIONS: Reviewed. REVIEW OF SYSTEMS: As per HPI, all other systems reviewed are negative. PHYSICAL EXAMINATION: GENERAL: Alert, oriented gentleman, not in distress. VITAL SIGNS: Stable and afebrile. HEENT: NAD. NECK: Supple, no JVP, no lymphadenopathy. LUNGS: Clear. HEART: S1, S2 regular. ABDOMEN: Benign. His coccygeal wound is deep, at least stage 3, maybe stage 4, I cannot palpate any bone and the wound is clean. EXTREMITIES: No edema or cyanosis. SKIN: Unremarkable. NEUROLOGIC: He is able to communicate, but is not able to take care of himself. LABORATORY DATA: White count is normal. BUN and creatinine is normal. Lactic acid is normal. Urinalysis as I mentioned 11-20 wbc's. Cultures are pending. Sacrococcygeal x-ray is unremarkable. Chest x-ray is showing atelectasis versus infiltrate. IMPRESSION: 1. Sacrococcygeal wound, chronic. It is clean, but deep may need evaluation to see if it is all the way to the bone or not through MRI and/or CAT scan. 2. History of fever at the nursing facility in the morning before he was transferred so far no fever here. 3. Abnormal urinalysis, which is not uncommon for him to have. There are no other signs of infection. 4. Cognitive deficit. 5. Hypertension. 6. Obesity. RECOMMENDATIONS: We would use Rocephin. Supportive care. We will follow the cultures and continue to follow. Thank you very much, Dr. Stokes, for giving me the opportunity to participate in this patient's care. BRAYAN BERRIOS MD DR: ANAMARIA/nts JOB#: [id number] / [id number]
--- NOTE | 2019-03-14 14:49 | NUR ---
Wound Care: Patient seen per wound care consult for vac placement to right buttock pressure ulcer. Wound cleansed and assessed. Skin prepped and an ostomy ring placed to horace-wound. A hydrocolloid placed to bilateral buttocks/coccyx area wound. 2 pieces of leigh veraflo foam placed to wound bed of right buttock, the vac tracked up the right upper thigh. A good seal maintained at 125 mmHg intermittently with Veraflo cleanse settings at 16mL for 5 minutes every 3 hours. No other wounds noted. Bed lowered and call light in reach. Wound care will follow up on Tuesday for wound vac dressing change.
[2019-03-14 15:18] VITALS: BP 143/81
[2019-03-14] MEDS: LUBIPROSTONE 24 MCG CAPSULE PO SCH (17:00)
[2019-03-14] MEDS: CROMOLYN 4% OPHTH SOLUTION 10ML BOTTLE. OU SCH ×2 (17:47→21:00)
[2019-03-14 19:22] VITALS: BP 110/65
--- NOTE | 2019-03-14 22:28 | NUR ---
Dr Wilson paged to change Depakote ER to depakote sprinkles as Depakote ER can not be crushed. Order given.
[2019-03-14 23:20] VITALS: BP 122/67
[2019-03-15 03:50] VITALS: BP 132/78
[2019-03-15] MEDS: ATORVASTATIN CALCIUM 10 MG TABLET. PO SCH ×2 (03:57→20:31)
[2019-03-15] MEDS: busPIRone 5 MG TABLET. PO SCH ×3 (03:57→20:31)
[2019-03-15] MEDS: MIRTAZAPINE 15 MG TABLET PO SCH ×2 (03:57→20:31)
[2019-03-15] MEDS: CIPROFLOXACIN 0.3% OPHTH SOLUTION 5ML BOTTLE. OU SCH ×5 (03:58→20:32)
[2019-03-15] MEDS: SULFACETAMIDE 10% OPHTH SOLUTION 15ML BOTTLE. OU SCH ×5 (03:58→20:32)
[2019-03-15] MEDS: DIVALPROEX SPRINKLES 125 MG CAPSULE. PO SCH ×3 (03:58→20:31)
[2019-03-15 07:56] VITALS: BP 146/84
[2019-03-15] MEDS: CROMOLYN 4% OPHTH SOLUTION 10ML BOTTLE. OU SCH ×4 (09:00→20:40)
--- NOTE | 2019-03-15 09:16 | NUR ---
MENDOZA faxed updates to Andreea Knight. Will continue to follow.
[2019-03-15] MEDS: LUBIPROSTONE 24 MCG CAPSULE PO SCH ×2 (09:28→17:20)
[2019-03-15] MEDS: FAMOTIDINE 20 MG TABLET. PO SCH (09:30)
[2019-03-15] MEDS: DOCUSATE SODIUM 100 MG CAPSULE. PO SCH ×2 (09:30→20:31)
[2019-03-15] MEDS: TAMSULOSIN 0.4 MG CAP.ER.24H. PO SCH (09:30)
[2019-03-15] MEDS: VENLAFAXINE XR 37.5 MG CAP.ER.24H. PO SCH (09:30)
[2019-03-15] MEDS: cefTRIAXone IV Push 2 GM VIAL. IVP SCH (09:31)
--- NOTE | 2019-03-15 09:48 | PDOC ---
Infectious Disease Note Subjective Subjective awake, says feeling good ROS ROS no n/v/d/sob Vital Sign Vital Signs Vital Signs Date Time Temp Pulse Resp B/P (MAP) Pulse Ox O2 Delivery O2 Flow Rate FiO2 03/15/19 07:56 97.8 61 20 146/84 (104) 97 Room Air 97.8 Physical Exam PHYSICAL EXAM GENERAL: Alert, oriented gentleman, not in distress. VITAL SIGNS: Stable and afebrile. HEENT: NAD. NECK: Supple, no JVP, no lymphadenopathy. LUNGS: Clear. HEART: S1, S2 regular. ABDOMEN: Benign. His coccygeal wound is deep, at least stage 3, maybe stage 4, I cannot palpate any bone and the wound is clean. EXTREMITIES: No edema or cyanosis. SKIN: Unremarkable. NEUROLOGIC: He is able to communicate, but is not able to take care of himself. Labs Micro Microbiology 03/13/19 Blood Culture - Preliminary, Resulted NO GROWTH AFTER 1 DAY Objective Assessment 1. Sacrococcygeal wound, chronic. It is clean, but deep may need evaluation to see if it is all the way to the bone or not through MRI and/or CAT scan. 2. History of fever at the nursing facility in the morning before he was transferred so far no fever here. 3. Abnormal urinalysis, which is not uncommon for him to have. There are no other signs of infection. 4. Cognitive deficit. 5. Hypertension. 6. Obesity. Plan Plan of Care change antibiotics to po augmentin and doxy ok to d/c off load wound vac BRAYAN BERRIOS MD Mar 15, 2019 09:48
[2019-03-15 11:37] VITALS: BP 146/72
[2019-03-15] MEDS: AMOXICILLIN/K CLAV 875/125MG TABLET. PO SCH ×2 (11:44→20:31)
[2019-03-15] MEDS: MULTIVITAMIN with MINERAL TABLET. PO SCH (11:44)
[2019-03-15] MEDS: DOXYCYCLINE HYCLATE 100 MG TABLET PO SCH ×2 (11:44→20:31)
--- NOTE | 2019-03-15 12:50 | PDOC ---
PROGRESS NOTES Chief Complaint Chief Complaint Sepsis and buttock wound UTI coccygeal wounds from poor mobility conjunctivitis. T weakness debility, dysphagia, chronic MR or dementia, odd affect, near baseline History of Present Illness History of Present Illness improved DC tele cont abx DC in AM near baseline Vitals Vitals Vital Signs Date Time Temp Pulse Resp B/P (MAP) Pulse Ox O2 Delivery O2 Flow Rate FiO2 03/15/19 11:37 97.8 64 20 146/72 (96) 99 Room Air 97.8 Physical Exam Physical Exam GENERAL: Alert, oriented gentleman, not in distress. VITAL SIGNS: Stable and afebrile. HEENT: NAD. NECK: Supple, no JVP, no lymphadenopathy. LUNGS: Clear. HEART: S1, S2 regular. ABDOMEN: Benign. His coccygeal wound is deep, at least stage 3, maybe stage 4, I cannot palpate any bone and the wound is clean. EXTREMITIES: No edema or cyanosis. SKIN: Unremarkable. NEUROLOGIC: He is able to communicate, but is not able to take care of himself. General: Alert, Cooperative, mild distress Heart: Normal S1 Lungs: Clear Extremities: No cyanosis Skin: No breakdown Assessment and Plan Assessmemt and Plan Problems Medical Problems: (1) Decubitus ulcer of coccyx Status: Acute (2) Pneumonia Status: Acute (3) UTI (urinary tract infection) Status: Acute Comment Review of Relevant I have reviewed the following items dipesh (where applicable) has been applied. Labs Microbiology 03/13/19 Blood Culture - Preliminary, Resulted NO GROWTH AFTER 2 DAYS 03/13/19 Urine Culture - Final, Complete 03/13/19 Urine Culture Result 1 (DANIELITO) - Final, Complete 03/13/19 Anaerobic/Aerobic Culture, Resulted Pending 03/13/19 Anaerobic Culture Result 1 (DANIELITO), Resulted Pending 03/13/19 Aerobic Culture, Resulted Pending 03/13/19 Aerobic Culture Result 1 (DANIELITO), Resulted Pending 03/13/19 Gram Stain - Final, Resulted 03/13/19 Gram Stain Result 1 (DANIELITO) - Final, Resulted 03/13/19 Gram Stain Result 2 (DANIELITO) - Final, Resulted 03/13/19 Gram Stain Result 3 (DANIELITO) - Final, Resulted Medications Current Medications Sodium Chloride 1,000 ml @ 1,000 mls/hr 1X ONCE IV Last administered on 03/13/19at 10:07; Start 11/5/19 at 09:15; Stop 03/13/19 at 10:14; Status DC Ceftriaxone Sodium (Rocephin Im) 250 mg 1X ONCE IM Last administered on 03/13/19 12:14; Start 03/13/19 at 12:15; Stop 03/13/19 at 12:16; Status DC Ceftriaxone Sodium (Rocephin) 0.75 gm 1X ONCE IVP Last administered on 03/13/19 13:18; Start 03/13/19 at 12:45; Stop 03/13/19 at 12:46; Status DC Ciprofloxacin (Ciloxan Ophth) 1 drop QID OU Last administered on 03/15/19 0 9:32; Start 03/13/19 at 17:00 Acetaminophen (Tylenol) 650 mg PRN Q4HRS PRN PO MILD PAIN / TEMP; Start 03/14/19 at 10:15 Atorvastatin Calcium (Lipitor) 10 mg HS PO Last administered on 03/15/19 03:57; Start 03/14/19 at 21:00 Buspirone HCl (Buspar) 5 mg BID PO Last administered on 03/15/19 09:28; Start 03/14/19 at 10:00 Divalproex Sodium (Depakote Er) 500 mg BID PO Last administered on 03/14/19 12:09; Start 03/14/19 at 11:00; Stop 03/14/19 at 22:59; Status DC Docusate Sodium (Colace) 100 mg BID PO Last administered on 03/15/19 09:30; Start 03/14/19 at 11:00 Famotidine (Pepcid) 20 mg DAILY PO Last administered on 03/15/19 09:30; Start 03/14/19 at 11:00 Mirtazapine (Remeron) 15 mg QHS PO Last administered on 03/15/19 03:57; Start 03/14/19 at 21:00 Sulfacetamide Sodium (Sulf-10) 1 drop QID OU Last administered on 03/15/19 09:32; Start 03/14/19 at 13:00 Tamsulosin HCl (Flomax) 0.4 mg DAILY PO Last administered on 03/15/19 09:30; Start 03/14/19 at 11:00 Non-Formulary Medication (Cromolyn Sodium ) 1 drop QID EACHEYE ; Start 03/14/19 at 13:00; Stop 03/14/19 at 17:22; Status DC Lubiprostone (Amitiza) 24 mcg BIDWMEALS PO Last administered on 03/15/19 09:28; Start 03/14/19 at 17:00 Venlafaxine HCl (Effexor Xr) 75 mg DAILY PO Last administered on 03/15/19 09:30; Start 03/14/19 at 11:00 Ceftriaxone Sodium (Rocephin) 2 gm Q24H IVP Last administered on 03/15/19 09:31; Start 03/14/19 at 11:00; Stop 03/15/19 at 09:50; Status DC Cromolyn Sodium (Opticrom) 1 drop QID OU Last administered on 03/15/19 09:00; Start 03/14/19 at 18:00 Divalproex Sodium (Depakote Sprinkles) 500 mg BID PO Last administered on 03/15/19 09:29; Start 03/14/19 at 23:30 Amoxicillin/ Clavulanate Potassium (Augmentin 875/ 125mg) 1 tab BID PO Last administered on 03/15/19 11:44; Start 03/15/19 at 10:00 Doxycycline Hyclate (Vibra-Tab) 100 mg BID PO Last administered on 03/15/19 11:44; Start 03/15/19 at 10:00 Multivitamins (Thera M Plus) 1 tab DAILY PO Last administered on 03/15/19at 11:44; Start 03/15/19 at 11:00 Ascorbic Acid (Vitamin C) 500 mg BID PO ; Start 03/15/19 at 21:00 Active Scripts Active Erythromycin (Erythromycin Base) 1 Gm Oint...g. 0.25 Gm OP QHS 5 Days Sulfacetamide Sodium 15 Ml Drops 1 Drop EACHEYE QID 7 Days Amoxicillin 500 Mg Capsule 500 Mg PO TID 5 Days Reported Tylenol (Acetaminophen) 325 Mg Tablet 2 Tab PO PRN Q4HRS Mirtazapine 15 Mg Tablet 1 Tab PO QHS Linzess (Linaclotide) 145 Mcg Capsule 145 Mcg PO DAILY07 Docusate Sodium 100 Mg Capsule 1 Cap PO BID Depakote Er (Divalproex Sodium) 500 Mg Tab.er.24h 1 Tab PO BID Cromolyn Sodium 10 Ml Drops 1 Drop EACHEYE QID Cranberry (Cranberry Extract) 425 Mg Capsule 425 Mg PO BID Buspirone Hcl 5 Mg Tablet 1 Tab PO BID Atorvastatin Calcium 10 Mg Tablet 1 Tab PO HS Venlafaxine Hcl Er (Venlafaxine Hcl) 75 Mg Cap.er.24h 1 Cap PO DAILY Flomax (Tamsulosin Hcl) 0.4 Mg Cap.er.24h 0.4 Mg PO Famotidine 20 Mg Tablet 20 Mg PO Vitals/I & O Vital Sign - Last 24 Hours 03/14/19 03/14/19 03/14/19 03/15/19 15:18 19:22 23:20 03:50 Temp 98.1 98.5 98.9 98.4 98.1 98.5 98.9 98.4 Pulse 70 70 63 71 Resp 20 20 20 20 B/P (MAP) 143/81 (101) 110/65 (80) 122/67 (85) 132/78 (96) Pulse Ox 97 95 97 95 O2 Delivery Room Air Room Air Room Air Room Air 03/15/19 03/15/19 03/15/19 07:56 08:00 11:37 Temp 97.8 97.8 97.8 97.8 Pulse 61 64 Resp 20 20 B/P (MAP) 146/84 (104) 146/72 (96) Pulse Ox 97 99 O2 Delivery Room Air Room Air Room Air Intake and Output 03/14/19 03/14/19 03/15/19 15:00 23:00 07:00 Intake Total 50 ml 140 ml 0 ml Balance 50 ml 140 ml 0 ml EITAN WHITE MD Mar 15, 2019 12:50
[2019-03-15 15:53] VITALS: BP 138/76
--- NOTE | 2019-03-15 18:47 | NUR ---
Patient transferred from 6th floor to room 562 at 1757.
[2019-03-15 19:00] VITALS: BP 122/83
[2019-03-15] MEDS: ASCORBIC ACID 500 MG TABLET PO SCH (20:31)
[2019-03-15 23:00] VITALS: BP 151/73
[2019-03-16 03:00] VITALS: BP 151/73
[2019-03-16 07:00] VITALS: BP 140/82
[2019-03-16] MEDS ORDERED: AMOX1TAB11 PO (08:42)
[2019-03-16] MEDS ORDERED: MULT1TAB90 PO (08:42)
[2019-03-16] MEDS ORDERED: ASCO500T2 PO (08:42)
[2019-03-16] MEDS ORDERED: HYDR-3164 PO (08:42)
[2019-03-16] MEDS ORDERED: DOXY100T PO (08:42)
--- NOTE | 2019-03-16 08:44 | SNU/HH DC ---
DISCHARGE ORDERS DISCHARGE INFORMATION: DISCHARGE DATE: Mar 16, 2019 FINAL DIAGNOSIS Problems Medical Problems: (1) Decubitus ulcer of coccyx Status: Acute (2) Pneumonia Status: Acute (3) UTI (urinary tract infection) Status: Acute CONDITION ON DISCHARGE: Stable CODE STATUS: Code Status: Full [facility]: SNF STAY <30 DAYS: Yes HOSPICE: HOSPICE: No HOSPICE EVAL & TREAT: No LTAC: ADMIT TO LTAC: No POST DISCHARGE ORDERS: ACTIVITY ORDERS: Activity as tolerated DIET AFTER DISCHARGE: dysphagia 1 CHECKS AFTER DISCHARGE: CHECKS AFTER DISCHARGE: Check blood press - daily, Check blood sugar, ac/hs FOLLOW-UP: PHYSICIAN FOLLOW-UP: pcp and ID upon snu re coccygeal wound (Dr Jason calix for ID) ADDITIONAL FOLLOW-UP: turn q2 at least pls TREATMENT/EQUIPMENT ORDERS: ADAPTIVE EQUIPMENT NEEDED: None Physical Therapy For: Evalulation/Treatment Occupational Therapy For: Evaluation/Treatment Speech Language Pathology For: Evaluation/Treatment DISCHARGE MEDICATIONS: Home Meds Active Scripts Hydrocodone/Apap 5-325 (NORCO 5-325 TABLET) 1 Each Tablet, 1 TAB PO TID for pain, #20 TAB Prov:BERNARDO KURTZ MD 03/16/19 Multivits,Ca,Minerals/Iron/Fa (THERA-M TABLET) 1 Each Tablet, 1 TAB PO DAILY for mvi, #60 TAB Prov:BERNARDO KURTZ MD 03/16/19 Ascorbic Acid (VITAMIN C) 500 Mg Tablet, 500 MG PO BID for mvi, #60 TAB Prov:BERNARDO KURTZ MD 03/16/19 Doxycycline Hyclate (DOXYCYCLINE HYCLATE) 100 Mg Tablet, 100 MG PO BID for lyssa cygeal wound for 7 Days, #14 TAB Prov:BERNARDO KURTZ MD 03/16/19 Amoxicillin/Potassium Clav (AMOX TR-K CLV 875-125 MG TAB) 1 Each Tablet, 1 TAB PO BID for buttock wound for 7 Days, #14 TAB Prov:BERNARDO KURTZ MD 03/16/19 Erythromycin Base (Erythromycin) 1 Gm Oint...g., 0.25 GM OP QHS for CONJUNCTIVITIS for 5 Days, #1 MISC Prov:MICHAEL BOJORQUEZ MD 08/08/18 Sulfacetamide Sodium (SULFACETAMIDE SODIUM) 15 Ml Drops, 1 DROP EACHEYE QID for CONJUNCTIVITIS for 7 Days, #15 ML Prov:MICHAEL BOJORQUEZ MD 08/08/18 Reported Medications Acetaminophen (TYLENOL) 325 Mg Tablet, 2 TAB PO PRN Q4HRS for pain/temp, #30 TAB 08/04/18 Mirtazapine (MIRTAZAPINE) 15 Mg Tablet, 1 TAB PO QHS for impulive , #30 TAB 3 Refills 08/04/18 Linaclotide (LINZESS) 145 Mcg Capsule, 145 MCG PO DAILY07 for IRRITABLE BOWEL, CAP 08/04/18 Docusate Sodium (DOCUSATE SODIUM) 100 Mg Capsule, 1 CAP PO BID for constipation, #30 CAP 08/04/18 Divalproex Sodium (DEPAKOTE ER) 500 Mg Tab.er.24h, 1 TAB PO BID for Depression, #60 TAB 2 Refills 08/04/18 Cromolyn Sodium (CROMOLYN SODIUM) 10 Ml Drops, 1 DROP EACHEYE QID for allergies, #30 ML 3 Refills 08/04/18 Cranberry Extract (CRANBERRY) 425 Mg Capsule, 425 MG PO BID for supplement, CAP 08/04/18 Buspirone Hcl (BUSPIRONE HCL) 5 Mg Tablet, 1 TAB PO BID for Depression, #60 TAB 2 Refills 08/04/18 Atorvastatin Calcium (ATORVASTATIN CALCIUM) 10 Mg Tablet, 1 TAB PO HS for HLD, #30 TAB 5 Refills 08/04/18 Venlafaxine Hcl (VENLAFAXINE HCL ER) 75 Mg Cap.er.24h, 1 CAP PO DAILY for Depression, #90 CAP 3 Refills 08/04/18 Tamsulosin Hcl (FLOMAX) 0.4 Mg Cap.er.24h, 0.4 MG PO 05/10/13 Famotidine (FAMOTIDINE) 20 Mg Tablet, 20 MG PO 05/10/13 Discontinued Scripts Amoxicillin (AMOXICILLIN) 500 Mg Capsule, 500 MG PO TID for UTI for 5 Days, #15 CAP 0 Refills Prov:MICHAEL BOJORQUEZ MD 08/08/18 BERNARDO KURTZ MD Mar 16, 2019 08:43
[2019-03-16] MEDS: CROMOLYN 4% OPHTH SOLUTION 10ML BOTTLE. OU SCH ×2 (09:00→12:52)
[2019-03-16] MEDS: ASCORBIC ACID 500 MG TABLET PO SCH (09:04)
[2019-03-16] MEDS: DOCUSATE SODIUM 100 MG CAPSULE. PO SCH (09:04)
[2019-03-16] MEDS: busPIRone 5 MG TABLET. PO SCH (09:04)
[2019-03-16] MEDS: SULFACETAMIDE 10% OPHTH SOLUTION 15ML BOTTLE. OU SCH ×2 (09:05→12:52)
[2019-03-16] MEDS: MULTIVITAMIN with MINERAL TABLET. PO SCH (09:05)
[2019-03-16] MEDS: TAMSULOSIN 0.4 MG CAP.ER.24H. PO SCH (09:05)
[2019-03-16] MEDS: VENLAFAXINE XR 37.5 MG CAP.ER.24H. PO SCH (09:05)
[2019-03-16] MEDS: DIVALPROEX SPRINKLES 125 MG CAPSULE. PO SCH (09:05)
[2019-03-16] MEDS: LUBIPROSTONE 24 MCG CAPSULE PO SCH (09:05)
[2019-03-16] MEDS: CIPROFLOXACIN 0.3% OPHTH SOLUTION 5ML BOTTLE. OU SCH ×2 (09:05→12:52)
[2019-03-16] MEDS: AMOXICILLIN/K CLAV 875/125MG TABLET. PO SCH (09:05)
[2019-03-16] MEDS: DOXYCYCLINE HYCLATE 100 MG TABLET PO SCH (09:05)
[2019-03-16] MEDS: FAMOTIDINE 20 MG TABLET. PO SCH (09:16)
--- NOTE | 2019-03-16 09:17 | NUR ---
Opticrom eye drop bar code would not scan, entered manually.
--- NOTE | 2019-03-16 10:20 | PDOC ---
Infectious Disease Note Subjective Subjective awake, says feeling good ROS ROS no n/v/d/sob Vital Sign Vital Signs Vital Signs Date Time Temp Pulse Resp B/P (MAP) Pulse Ox O2 Delivery O2 Flow Rate FiO2 03/16/19 07:00 98.2 68 16 140/82 (101) 98 Room Air 98.2 Physical Exam PHYSICAL EXAM GENERAL: Alert, oriented gentleman, not in distress. VITAL SIGNS: Stable and afebrile. HEENT: NAD. NECK: Supple, no JVP, no lymphadenopathy. LUNGS: Clear. HEART: S1, S2 regular. ABDOMEN: Benign. His coccygeal wound is deep, at least stage 3, maybe stage 4, I cannot palpate any bone and the wound is clean. EXTREMITIES: No edema or cyanosis. SKIN: Unremarkable. NEUROLOGIC: He is able to communicate, but is not able to take care of himself. Labs Micro Microbiology 03/13/19 Blood Culture - Preliminary, Resulted NO GROWTH AFTER 1 DAY Objective Assessment 1. Sacrococcygeal wound, chronic. It is clean, but deep may need evaluation to see if it is all the way to the bone or not through MRI and/or CAT scan. 2. History of fever at the nursing facility in the morning before he was transferred so far no fever here. 3. Abnormal urinalysis, which is not uncommon for him to have. There are no other signs of infection. 4. Cognitive deficit. 5. Hypertension. 6. Obesity. Plan Plan of Care po augmentin and doxy ok to d/c off load wound vac BRAYAN BERRIOS MD Mar 16, 2019 10:20
[2019-03-16 11:00] VITALS: BP 134/82
--- NOTE | 2019-03-16 11:00 | PDOC3 ---
Discharge Summary Visit Information Date of Admission: Mar 13, 2019 Date of Discharge: Mar 16, 2019 Admitting Diagnosis Comment: 1. Sacrococcygeal wound, chronic. It is clean, but deep may need evaluation to see if it is all the way to the bone or not through MRI and/or CAT scan. 2. History of fever at the nursing facility in the morning before he was transferred so far no fever here. 3. Abnormal urinalysis, which is not uncommon for him to have. There are no other signs of infection. 4. Cognitive deficit. 5. Hypertension. 6. Obesity. Final Diagnosis Problems Medical Problems: (1) Decubitus ulcer of coccyx Status: Acute (2) Pneumonia Status: Acute (3) UTI (urinary tract infection) Status: Acute Brief Hospital Course Allergies Allergies Coded Allergies Type Severity Reaction Last Updated Verified No Known Drug Allergies 05/10/13 No Vital Signs Vital Signs Date Time Temp Pulse Resp B/P (MAP) Pulse Ox O2 Delivery O2 Flow Rate FiO2 03/16/19 07:00 98.2 68 16 140/82 (101) 98 Room Air 98.2 Brief Hospital Course Mr. Kirkland is a 68 old SNU resident and has dementia, admitted for coccygeal wound, ok for pO augmentin now as per ID, HE DID NOT need any I and D of sorts, HE will need wound vac though, HE is on a diet, HE can answer simple qs. FULL CODE on file, BAck to SNU rehab today PO augmentin, turn q2 and wound vac I am assuming care of this pt today on DAY of dc Dispo: SNU Pt seen and examined Dc < 30 Discharge Information Disposition/Orders: Other (snu) Scheduled Acetaminophen (Tylenol) 325 Mg Tablet, 2 TAB PO PRN Q4HRS for pain/temp, #30 (Reported) Entered as Reported by: EVELINA ESCOBAR on 08/04/18 1704 Last Action: Continued on 03/14/19 1005 by EITAN WHITE Amoxicillin/Potassium Clav (Amox Tr-K Clv 875-125 Mg Tab) 1 Each Tablet, 1 TAB PO BID for buttock wound for 7 Days, #14 Prescribed by: BERNARDO KURTZ on 03/16/19 0842 Ascorbic Acid (Vitamin C) 500 Mg Tablet, 500 MG PO BID for mvi, #60 Prescribed by: BERNARDO KURTZ on 03/16/19841 Atorvastatin Calcium (Atorvastatin Calcium) 10 Mg Tablet, 1 TAB PO HS for HLD, #30 Ref 5 (Reported) Entered as Reported by: EVELINA ESCOBAR on 08/04/181703 Last Action: Continued on 03/14/191004 by EITAN WHITE Buspirone Hcl (Buspirone Hcl) 5 Mg Tablet, 1 TAB PO BID for Depression, #60 Ref 2 (Reported) Entered as Reported by: EVELINA ESCOBAR on 08/04/181703 Last Action: Continued on 03/14/191004 by EITAN WHITE Cranberry Extract (Cranberry) 425 Mg Capsule, 425 MG PO BID for supplement, (Reported) Entered as Reported by: EVELINA ESCOBAR on 08/04/181703 Last Action: HELD on 03/14/191004 by EITAN WHITE Cromolyn Sodium (Cromolyn Sodium) 10 Ml Drops, 1 DROP EACHEYE QID for allergies, #30 Ref 3 (Reported) Entered as Reported by: EVELINA ESCOBAR on 08/04/181703 Last Action: Converted on 03/14/191004 by EITAN WHITE Divalproex Sodium (Depakote Er) 500 Mg Tab.er.24h, 1 TAB PO BID for Depression, #60 Ref 2 (Reported) Entered as Reported by: EVELINA ESCOBAR on 08/04/181703 Last Action: Continued on 03/14/191004 by EITAN WHITE Docusate Sodium (Docusate Sodium) 100 Mg Capsule, 1 CAP PO BID for constipation, #30 (Reported) Entered as Reported by: EVELINA ESCOBAR on 08/04/181703 Last Action: Continued on 03/14/191004 by EITAN WHITE Doxycycline Hyclate (Doxycycline Hyclate) 100 Mg Tablet, 100 MG PO BID for coccygeal wound for 7 Days, #14 Prescribed by: BERNARDO KURTZ on 03/16/19841 Erythromycin Base (Erythromycin) 1 Gm Oint...g., 0.25 GM OP QHS for CONJUNCTIVITIS for 5 Days, #1 Prescribed by: RENO RODRIGUEZ on 08/08/18 0947 Last Action: HELD on 03/14/191004 by EITAN WHITE Hydrocodone/Apap 5-325 ([place] 5-325 Tablet) 1 Each Tablet, 1 TAB PO TID for pain, #20 Prescribed by: BERNARDO KURTZ on 03/16/19 0842 Linaclotide (Linzess) 145 Mcg Capsule, 145 MCG PO DAILY07 for IRRITABLE BOWEL, (Reported) Entered as Reported by: EVELINA ESCOBAR on 08/04/181703 Last Action: Converted on 03/14/191004 by EITAN WHITE Mirtazapine (Mirtazapine) 15 Mg Tablet, 1 TAB PO QHS for impulive , #30 Ref 3 (Reported) Entered as Reported by: EVELINA ESCOBAR on 08/04/181703 Last Action: Continued on 03/14/191004 by EITAN WHITE Multivits,Ca,Minerals/Iron/Fa (Thera-M Tablet) 1 Each Tablet, 1 TAB PO DAILY for mvi, #60 Prescribed by: BERNARDO KURTZ on 03/16/19 0842 Sulfacetamide Sodium (Sulfacetamide Sodium) 15 Ml Drops, 1 DROP EACHEYE QID for CONJUNCTIVITIS for 7 Days, #15 Prescribed by: RENO RODRIGUEZ on 08/08/18 0947 Last Action: Continued on 03/14/191004 by EITAN WHITE Venlafaxine Hcl (Venlafaxine Hcl Er) 75 Mg Cap.er.24h, 1 CAP PO DAILY for Depression, #90 Ref 3 (Reported) Entered as Reported by: EVELINA ESCOBAR on 08/04/181703 Last Action: Converted on 03/14/191004 by EITAN WHITE Miscellaneous Medications Famotidine (Famotidine) 20 Mg Tablet, 20 MG PO, (Reported) Entered as Reported by: SHAWN ZHAO on 05/10/131248 Last Action: Continued on 03/14/191004 by EITAN WHITE Tamsulosin Hcl (Flomax) 0.4 Mg Cap.er.24h, 0.4 MG PO, (Reported) Entered as Reported by: SHAWN ZHAO on 05/10/131248 Last Action: Continued on 03/14/191004 by EITAN WHITE Discontinued Medications Amoxicillin (Amoxicillin) 500 Mg Capsule, 500 MG PO TID for UTI for 5 Days, #15 Ref 0 Prescribed by: RENO RODRIGUEZ on 08/08/18 0937 Last Action: HELD on 03/14/19 1005 by BERNARDO RICKETTS MD Mar 16, 2019 11:00
--- NOTE | 2019-03-16 11:16 | NUR ---
MENDOZA following pt. MENDOZA phoned and faxed orders to [facility]. MENDOZA notified SWer at [facility] pt will need a wound vac. Pt will transport via [facility] at 1500 and Packet on chart. Attempted to call pt's brother but phone is disconnected. Discussed with RN and Adrian from Wound Care.
--- NOTE | 2019-03-16 11:35 | NUR ---
Andreea Knight called to check patient flu vaccine status. He has not received, attempted to call patient's brother at [phone] but number has been disconnected. Flu vaccine not give as patient unable to respond. Forming Department Supervisor Gabe to check if any other family members who could [place] flu vaccine.
--- NOTE | 2019-03-16 15:30 | NUR ---
See nursing communication and orders, report called to Kathleen ROSAS at [facility]. Patient discharge to [facility] per erma per EMS with copied chart, physician orders and prescriptions, and all belongings.
== END 2019-03-16 15:30 | disposition home or self-care (01) | DRG 871 ==
LOC: ER 08:57 → ED HOLD 13:32 → 6 SOUTH 15:08 → 5 SOUTH 03-15 17:57
PROVIDERS: ADMIT Internal Medicine; ATTEND Internal Medicine
DX: A41.9 Sepsis, unspecified organism (principal); L89.153 Pressure ulcer of sacral region, stage 3; J18.9 Pneumonia, unspecified organism; N39.0 Urinary tract infection, site not specified; E66.9 Obesity, unspecified; E78.00 Pure hypercholesterolemia, unspecified; E78.5 Hyperlipidemia, unspecified; F03.90 Unspecified dementia, unspecified severity, without behavioral disturbance, psychotic disturbance, mood disturbance, and anxiety; F32.9 Major depressive disorder, single episode, unspecified; I10 Essential (primary) hypertension; N40.1 Benign prostatic hyperplasia with lower urinary tract symptoms; Z83.3 Family history of diabetes mellitus; F41.9 Anxiety disorder, unspecified; K21.9 Gastro-esophageal reflux disease without esophagitis; Z68.31 Body mass index [BMI] 31.0-31.9, adult
CPT/HCPCS: 36415; 71045; 72220; 80053; 81001; 82553; 83605; 83735; 84484; 85025; 85610; 85730; 87040; 87071; 87075; 87086; 87186; 93005; 96361; 96372; 96374; J0696; J7030; 92526; 92610; 99285-25; G0378